=== PATIENT | female | born 1955 | race Caucasian/White ===

== ENCOUNTER → 2016-05-29 | Outpatient (REF) | payer BC | LOC: M LAB REF 12:07 | PROVIDERS: ATTEND Nurse Practitioner Adult Health | DX: K62.5 Hemorrhage of anus and rectum (principal) ==

== ENCOUNTER → 2016-11-27 | Outpatient (REF) | payer BC | LOC: M LAB REF 17:28 | PROVIDERS: ATTEND Nurse Practitioner Adult Health | DX: D50.9 Iron deficiency anemia, unspecified (principal) ==

== ENCOUNTER → 2017-06-05 | Outpatient (REF) | payer BC ==
[2017-06-05 14:35] LABS: IRON (FE) 116 UG/DL (50-170)
== END ==
LOC: M LAB REF 13:28
DX: D50.9 Iron deficiency anemia, unspecified (principal)
CPT/HCPCS: 83540

== ENCOUNTER 2018-04-05 08:08 | Emergency (ER) | payer BC ==
[2018-04-05 08:36] LABS: BASO # 0.1 10^3/uL (0.0-0.2); BASO % 0.4 % (0.0-1.0); EOS # 0.2 10^3/uL (0.0-0.50); EOS % 1.5 % (0.0-3.0); HEMATOCRIT 50.2 % (36.0-47.0); IMMATURE GRANULOCYTE % 0.4 % (0-3.0); LYMPH % 16.2 % (24.0-44.0); MEAN CORPUSCULAR HEMOGLOBIN 31.1 pg (27.0-33.0); MEAN CORPUSCULAR HGB CONC 33.9 g/dl (32.0-36.5); MEAN CORPUSCULAR VOLUME 91.8 fl (80.0-96.0); MONO # 0.8 10^3/uL (0.0-0.8); MONO % 6.5 % (0.0-5.0); NEUTROPHILS # 9.2 10^3/uL (1.8-7.7); PLATELET COUNT, AUTOMATED 251 10^3/uL (150-450); RED BLOOD COUNT 5.47 10^6/uL (4.00-5.40); RED CELL DISTRIBUTION WIDTH 13.4 % (11.5-14.5); WHITE BLOOD COUNT 12.3 10^3/uL (4.0-10.0)
[2018-04-05 08:59] LABS: ALBUMIN 3.7 GM/DL (3.2-5.2); ALBUMIN/GLOBULIN RATIO 1.19 (1.00-1.93); ALKALINE PHOSPHATASE 96 U/L (45-117); ALT/SGPT 18 U/L (12-78); ANION GAP 7 MEQ/L (8-16); AST/SGOT 14 U/L (7-37); BILIRUBIN,DIRECT 0.1 MG/DL (0.0-0.2); BILIRUBIN,TOTAL 0.5 MG/DL (0.2-1.0); BLOOD UREA NITROGEN 8 MG/DL (7-18); CARBON DIOXIDE LEVEL 29 MEQ/L (21-32); CHLORIDE LEVEL 105 MEQ/L (98-107); CREATININE FOR GFR 0.75 MG/DL (0.55-1.30); GLOMERULAR FILTRATION RATE > 60.0 (>45); GLUCOSE, FASTING 95 MG/DL (70-100); LIPASE 83 U/L (73-393); POTASSIUM SERUM 4.1 MEQ/L (3.5-5.1); SODIUM LEVEL 141 MEQ/L (136-145); TOTAL PROTEIN 6.8 GM/DL (6.4-8.2)
[2018-04-05] MEDS: MORPHINE 2 MG/ML 1ML SYRINGE (J2270) IV (09:03)
[2018-04-05] MEDS: GASTROGRAFIN SOLUTION 30ML PO ×2 (09:34→10:05)
[2018-04-05] MEDS ORDERED: ISOVUE-370 76% 100ML VIAL (Q9967) As Ordered (10:41)
== END 2018-04-05 12:31 | disposition home or self-care (01) ==
LOC: M ED 08:08
DX: K44.9 Diaphragmatic hernia without obstruction or gangrene (principal); K21.9 Gastro-esophageal reflux disease without esophagitis
CPT/HCPCS: Q9963

== ENCOUNTER 2018-07-28 23:48 | Emergency (ER) | payer BC ==
[~2018-07-28] VITALS: Ht 182.9 cm; Wt 72.7 kg
[~2018-07-28 23:48] MED LIST: ASPI81TA85 PO; ATEN25TA PO; LANS30CA PO; PARO1TAB33 PO; PERC5TAB12 PO; SIMV20TA2 PO; VITA100067 PO
[2018-07-28] MEDS ORDERED: WARF-20 (23:56)
[2018-07-29] MEDS ORDERED: NS 1,000 ML IV ONE (00:45)
[2018-07-29] MEDS ORDERED: ONDANSETRON 4MG/2ML VIAL (J2405) IV ONE (00:45)
[2018-07-29] MEDS ORDERED: MORPHINE 4 MG/ML 1ML VIAL/SYRINGE (J2270) IV PRN (00:45)
[2018-07-29 01:10] LABS: BASO # 0.1 10^3/uL (0.0-0.2); BASO % 0.3 % (0.0-1.0); EOS # 0.4 10^3/uL (0.0-0.50); EOS % 2.1 % (0.0-3.0); HEMATOCRIT 38.4 % (36.0-47.0); HEMOGLOBIN 12.7 g/dl (12.0-15.5); LYMPH % 11.4 % (24.0-44.0); MEAN CORPUSCULAR HEMOGLOBIN 29.7 pg (27.0-33.0); MEAN CORPUSCULAR HGB CONC 33.1 g/dl (32.0-36.5); MEAN CORPUSCULAR VOLUME 89.7 fl (80.0-96.0); MONO # 1.1 10^3/uL (0.0-0.8); MONO % 6.1 % (0.0-5.0); NEUTROPHILS # 14.1 10^3/uL (1.8-7.7); NEUTROPHILS % 79.6 % (36.0-66.0); PLATELET COUNT, AUTOMATED 563 10^3/uL (150-450); RED BLOOD COUNT 4.28 10^6/uL (4.00-5.40); WHITE BLOOD COUNT 17.7 10^3/uL (4.0-10.0)
[2018-07-29 01:36] LABS: ALBUMIN 2.3 GM/DL (3.2-5.2); ALT/SGPT 16 U/L (12-78); BILIRUBIN,DIRECT < 0.1 MG/DL (0.0-0.2); BILIRUBIN,TOTAL 0.2 MG/DL (0.2-1.0); BLOOD UREA NITROGEN 11 MG/DL (7-18); CALCIUM LEVEL 7.9 MG/DL (8.8-10.2); CARBON DIOXIDE LEVEL 29 MEQ/L (21-32); CHLORIDE LEVEL 103 MEQ/L (98-107); CPK CREATINE PHOSPHOKINASE 27 U/L (26-192); CREATININE FOR GFR 0.69 MG/DL (0.55-1.30); GLOMERULAR FILTRATION RATE > 60.0 (>45); GLUCOSE, FASTING 110 MG/DL (70-100); LIPASE 91 U/L (73-393); MB/CK RELATIVE INDEX 4.44 (< OR =4); POTASSIUM SERUM 2.5 MEQ/L (3.5-5.1); SODIUM LEVEL 141 MEQ/L (136-145); TOTAL PROTEIN 5.8 GM/DL (6.4-8.2); TROPONIN I < 0.02 NG/ML (< 0.10)
[2018-07-29 01:38] LABS: INR 1.91; PROTHROMBIN TIME 22.2 SECONDS (12.1-14.4)
[2018-07-29 01:39] LABS: PARTIAL THROMBOPLASTIN TIME 35.7 SECONDS (25.4-37.6)
[2018-07-29 01:48] LABS: MAGNESIUM LEVEL 1.1 MG/DL (1.8-2.4)
[2018-07-29] MEDS ORDERED: ISOVUE-370 76% 100ML VIAL (Q9967) As Ordered ONE (01:50)
[2018-07-29] MEDS ORDERED: KCL 10MEQ/100ML SWI (KRUN) 10 MEQ in APPROPRIATE DILUENT 1 EA IV ONE (02:15)
--- NOTE | 2018-07-29 04:08 | REPVR ---
EXAM: CT Abdomen and Pelvis With Contrast EXAM DATE/TIME: 07/29/2018 1:56 AM CLINICAL HISTORY: 63 years old, female; Pain; Abdominal pain; Prior surgery; Surgery date: 1-6 months; Surgery type: Hernia; Additional info: Generalized abd pain TECHNIQUE: Axial computed tomography images of the abdomen and pelvis with intravenous contrast. All CT scans at this facility use at least one of these dose optimization techniques: automated exposure control; mA and/or kV adjustment per patient size (includes targeted exams where dose is matched to clinical indication); or iterative reconstruction. Coronal and sagittal reformatted images were created and reviewed. CONTRAST: Contrast Material: 100 ml of ISO 370; Contrast Route: IV COMPARISON: CT ABD PELVIS WITH CONTRAST 04/05/2018 10:42 AM FINDINGS: LUNG BASES: Atelectasis and pulmonary parenchymal fibrotic changes noted. There is a 6.9 cm emphysematous bleb at the right lung base. VASCULAR: Cardiothoracic ratio is borderline. No abdominal aortic aneurysm, dissection, or retroperitoneal hematoma. Mild atherosclerosis. PERITONEAL : No free air. Trace amounts of free fluid. Mild edema and stranding within the greater omentum. This may be secondary to recent postsurgical change or scarring. GI: The distal esophagus is slightly distended with fluid and ingested material, up to 2.8 cm in diameter with fluid extending above the level of imaging. This could be related to poor forward peristalsis, gastroesophageal obstruction or reflux. The previously seen large hiatal hernia has been reduced. Surgical clips are noted along the gastric cardia. Consider further assessment by esophagram, to exclude any possibility of stricture or dysmotility. The stomach contains ingested material, fluid and gas. The stomach is not sufficiently distended to evaluate wall thickening, exclude fold thickening or mucosal abnormality. Small bowel loops in the central abdomen demonstrate segmental areas of dilation with air fluid levels and segmental areas of wall thickening and narrowing. Maximal distention is up to 5.4 cm. Ileal loops in the right lower quadrant are nondilated. Findings are worrisome for small bowel obstruction. Obstruction could be secondary to adhesions or inflammation/enteritis. Consideration could be given to small bowel follow-through for further assessment. Indistinct soft tissue thickening and/or edema is noted between the anterior bowel loops and the greater omentum. This could be secondary to postsurgical change, inflammation and/or fluid/edema. Scattered fecal material and gas within portions of the colon and rectum. Perianal inflammation cannot be excluded. There is diverticulosis with no evidence of acute diverticulitis. Semisolid fecal material noted within portions of the colon. No pericolonic inflammatory stranding. The appendix does not appear inflamed. HEPATOBILIARY, PANCREAS, SPLEEN: The liver is not enlarged. The gallbladder has been removed. No significant biliary dilation. Since the prior exam, the spleen has been removed; there is a slightly thickwalled appearing cystic fluid collection in the left upper quadrant measuring 3.3 cm in diameter. This extends to the postero-superior diaphragmatic surface adjacent to some surgical clips. This could represent postsurgical change and/or aseptic fluid, residual hematoma, infarcted splenule, however infected fluid cannot be excluded. An 11 mm splenule is noted in the left upper quadrant. No pancreatic inflammation. ADRENALS, KIDNEYS, BLADDER, RETROPERITONEAL: Adrenals within normal limits. No hydronephrosis. Symmetric renal enhancement. Hypodense renal lesions noted, consistent with cysts. No perivesical stranding. Slight urinary bladder wall thickening likely artifact secondary to insufficient distention. PELVIC: No dominant cystic pelvic mass seen. Retroverted uterus. Gas within the vagina may be iatrogenic. MUSCULOSKELETAL: Skin thickening, subcutaneous thickening and reticulation noted along the midline abdominal wall, inseparable from the medial aspects of the rectus abdominis muscles could be secondary to recent postsurgical change. Tiny bubbles of gas are suspected. Cellulitis and/or infection cannot be excluded. This soft tissue thickening is inseparable from the anterior small bowel loops within the peritoneal cavity. Mesh repair of the previously seen left lower quadrant anterior abdominal wall hernia is noted. No surrounding inflammation or fluid collection seen. Degenerative changes of the spine and within the pelvis. No suspicious bone lesion. Left lateral sixth and seventh slightly displaced rib fractures are noted which appear ununited although some callus formation is seen suggesting subacute nature. These are new compared to prior exam. Right lateral sixth and possibly fifth rib fractures are noted which are new compared to the prior exam but appear to be uniting with callus. Old right posterior ninth rib fracture noted. IMPRESSION: Segmental areas of small bowel dilation within the central abdomen, consistent with small bowel obstruction. Gastrointestinal findings and differential discussed above in detail. Status post splenectomy. There is a 3.3 cm thick walled fluid collection in the left upper quadrant at the splenectomy site, differential as given above. Skin thickening, tiny amount of gas noted along the anterior abdominal wall which could be secondary to postsurgical change but inflammation/infection cannot be excluded. Other incidental findings discussed above. Electronically signed by: Nirmal Hutton On 07/29/2018 04:08:19 AM
[2018-07-29] MEDS ORDERED: MAG SULF 1GM/100ML (MAG RUN) 1 GM in APPROPRIATE DILUENT 1 EA IV ONE (04:45)
[2018-07-29] MEDS ORDERED: POTASSIUM CHLORIDE 10 MEQ SR TABLET PO ONE (04:45)
[2018-07-29] MEDS ORDERED: PIPERACILLIN/TAZOBACTAM SOD 3.375 GM in D5W MINI-BAG PLUS 50 ML IV ONE (04:45)
[2018-07-29] MEDS ORDERED: MAGNESIUM OXIDE 400 MG TAB (MAG-OX) PO ONE (05:45)
[2018-07-29 06:04] VITALS: BP 113/71
--- NOTE | 2018-07-29 21:52 | ECGEPIP ---
Stationary ECG Study [facility] - ED Test Date: 2018-07-29 Pat Name: SAMMY DENT Department: Room: - Gender: F Pet Sitting: NUPUR : 1955 Requested By: REMY Hatfield Order Number: [id number] Reading MD: Derick Hammond Measurements Intervals [place] Rate: 62 P: 64 DE: 130 QRS: -11 QRSD: 104 T: 30 QT: 444 QTc: 451 Interpretive Statements SINUS RHYTHM MODERATE ST DEPRESSION Comparison tracing not on file Electronically Signed On 07-29-2018 21:52:03 EDT by Derick Hammond
== END 2018-07-29 06:11 | disposition short-term general hospital (02) ==
LOC: M ED 23:48
DX: K56.609 Unspecified intestinal obstruction, unspecified as to partial versus complete obstruction (principal); K65.1 Peritoneal abscess; E83.51 Hypocalcemia; E83.42 Hypomagnesemia; R11.2 Nausea with vomiting, unspecified; R19.7 Diarrhea, unspecified; I51.9 Heart disease, unspecified; N18.9 Chronic kidney disease, unspecified; Z85.3 Personal history of malignant neoplasm of breast; Z90.81 Acquired absence of spleen; Z87.891 Personal history of nicotine dependence; Z88.0 Allergy status to penicillin; Z88.2 Allergy status to sulfonamides; Z79.899 Other long term (current) drug therapy; Z79.01 Long term (current) use of anticoagulants
CPT/HCPCS: 74177; 80048; 80076; 82550; 82553; 83605; 83690; 83735; 84484; 85025; 85610; 85730; 87040; 93005; 93041; 96365; 96367; 96375; 99285; J2270; J2405; J2543; Q9967

== ENCOUNTER → 2018-08-12 | Outpatient (REF) | payer BC ==
[~2018-08-12] MED LIST changes: +WARF-20
[2018-08-12 17:28] LABS: HEMATOCRIT 35.7 % (36.0-47.0); HEMOGLOBIN 11.4 g/dl (12.0-15.5); MEAN CORPUSCULAR HEMOGLOBIN 29.4 pg (27.0-33.0); MEAN CORPUSCULAR HGB CONC 31.9 g/dl (32.0-36.5); PLATELET COUNT, AUTOMATED 486 10^3/uL (150-450); RED BLOOD COUNT 3.88 10^6/uL (4.00-5.40); WHITE BLOOD COUNT 10.9 10^3/uL (4.0-10.0)
[2018-08-12 17:53] LABS: ALBUMIN 2.5 GM/DL (3.2-5.2); ALT/SGPT 17 U/L (12-78); BILIRUBIN,TOTAL 0.2 MG/DL (0.2-1.0); BLOOD UREA NITROGEN 16 MG/DL (7-18); CALCIUM LEVEL 8.2 MG/DL (8.8-10.2); CARBON DIOXIDE LEVEL 28 MEQ/L (21-32); CHLORIDE LEVEL 106 MEQ/L (98-107); CREATININE FOR GFR 0.64 MG/DL (0.55-1.30); GLOMERULAR FILTRATION RATE > 60.0 (>45); GLUCOSE, FASTING 99 MG/DL (70-100); MAGNESIUM LEVEL 1.8 MG/DL (1.8-2.4); PHOSPHORUS LEVEL 3.4 MG/DL (2.5-4.9); POTASSIUM SERUM 4.4 MEQ/L (3.5-5.1); PREALBUMIN 16.6 MG/DL (20.0-40.0); SODIUM LEVEL 141 MEQ/L (136-145); TOTAL PROTEIN 5.8 GM/DL (6.4-8.2); TRIGLYCERIDES LEVEL 121 MG/DL (<150)
== END ==
LOC: M LAB REF 16:44
PROVIDERS: ATTEND Physician Assistant
DX: Z87.738 Personal history of other specified (corrected) congenital malformations of digestive system (principal)

== ENCOUNTER → 2018-08-19 | Outpatient (REF) | payer BC ==
[2018-08-19 17:26] LABS: HEMATOCRIT 39.4 % (36.0-47.0); HEMOGLOBIN 12.6 g/dl (12.0-15.5); MEAN CORPUSCULAR HEMOGLOBIN 29.4 pg (27.0-33.0); MEAN CORPUSCULAR VOLUME 92.1 fl (80.0-96.0); PLATELET COUNT, AUTOMATED 509 10^3/uL (150-450); RED BLOOD COUNT 4.28 10^6/uL (4.00-5.40); WHITE BLOOD COUNT 10.4 10^3/uL (4.0-10.0)
[2018-08-19 17:34] LABS: ALBUMIN 2.7 GM/DL (3.2-5.2); ALT/SGPT 18 U/L (12-78); BILIRUBIN,TOTAL 0.4 MG/DL (0.2-1.0); BLOOD UREA NITROGEN 24 MG/DL (7-18); CALCIUM LEVEL 8.6 MG/DL (8.8-10.2); CARBON DIOXIDE LEVEL 29 MEQ/L (21-32); CHLORIDE LEVEL 102 MEQ/L (98-107); CREATININE FOR GFR 0.68 MG/DL (0.55-1.30); GLOMERULAR FILTRATION RATE > 60.0 (>45); GLUCOSE, FASTING 83 MG/DL (70-100); PHOSPHORUS LEVEL 5.1 MG/DL (2.5-4.9); POTASSIUM SERUM 4.8 MEQ/L (3.5-5.1); PREALBUMIN 18.8 MG/DL (20.0-40.0); SODIUM LEVEL 137 MEQ/L (136-145); TOTAL PROTEIN 6.2 GM/DL (6.4-8.2)
== END ==
LOC: M LAB REF 16:24
PROVIDERS: ATTEND Surgery
DX: T81.9XXA Unspecified complication of procedure, initial encounter (principal)

== ENCOUNTER → 2018-08-26 | Outpatient (REF) | payer BC ==
[2018-08-26 13:26] LABS: HEMATOCRIT 39.5 % (36.0-47.0); HEMOGLOBIN 12.6 g/dl (12.0-15.5); MEAN CORPUSCULAR HEMOGLOBIN 29.8 pg (27.0-33.0); MEAN CORPUSCULAR HGB CONC 31.9 g/dl (32.0-36.5); MEAN CORPUSCULAR VOLUME 93.4 fl (80.0-96.0); PLATELET COUNT, AUTOMATED 486 10^3/uL (150-450); RED BLOOD COUNT 4.23 10^6/uL (4.00-5.40); WHITE BLOOD COUNT 10.3 10^3/uL (4.0-10.0)
[2018-08-26 13:37] LABS: ALBUMIN 2.7 GM/DL (3.2-5.2); ALT/SGPT 21 U/L (12-78); BILIRUBIN,TOTAL 0.3 MG/DL (0.2-1.0); BLOOD UREA NITROGEN 23 MG/DL (7-18); CALCIUM LEVEL 8.6 MG/DL (8.8-10.2); CARBON DIOXIDE LEVEL 29 MEQ/L (21-32); CHLORIDE LEVEL 105 MEQ/L (98-107); GLOMERULAR FILTRATION RATE > 60.0 (>45); GLUCOSE, FASTING 98 MG/DL (70-100); MAGNESIUM LEVEL 1.8 MG/DL (1.8-2.4); PHOSPHORUS LEVEL 4.3 MG/DL (2.5-4.9); POTASSIUM SERUM 4.5 MEQ/L (3.5-5.1); SODIUM LEVEL 139 MEQ/L (136-145); TOTAL PROTEIN 6.2 GM/DL (6.4-8.2)
== END ==
LOC: M LAB REF 12:58
PROVIDERS: ATTEND Surgery
DX: K91.89 Other postprocedural complications and disorders of digestive system (principal); Y83.8 Other surgical procedures as the cause of abnormal reaction of the patient, or of later complication, without mention of misadventure at the time of the procedure

== ENCOUNTER → 2018-09-02 | Outpatient (REF) | payer BC ==
[2018-09-02 19:17] LABS: HEMATOCRIT 40.7 % (36.0-47.0); HEMOGLOBIN 13.2 g/dl (12.0-15.5); MEAN CORPUSCULAR HGB CONC 32.4 g/dl (32.0-36.5); MEAN CORPUSCULAR VOLUME 92.5 fl (80.0-96.0); PLATELET COUNT, AUTOMATED 478 10^3/uL (150-450); WHITE BLOOD COUNT 11.8 10^3/uL (4.0-10.0)
[2018-09-02 19:40] LABS: ALBUMIN 2.8 GM/DL (3.2-5.2); ALT/SGPT 22 U/L (12-78); BILIRUBIN,TOTAL 0.3 MG/DL (0.2-1.0); BLOOD UREA NITROGEN 24 MG/DL (7-18); CALCIUM LEVEL 8.5 MG/DL (8.8-10.2); CARBON DIOXIDE LEVEL 31 MEQ/L (21-32); CHLORIDE LEVEL 102 MEQ/L (98-107); GLOMERULAR FILTRATION RATE > 60.0 (>45); GLUCOSE, FASTING 69 MG/DL (70-100); MAGNESIUM LEVEL 1.6 MG/DL (1.8-2.4); PHOSPHORUS LEVEL 3.9 MG/DL (2.5-4.9); POTASSIUM SERUM 4.5 MEQ/L (3.5-5.1); SODIUM LEVEL 137 MEQ/L (136-145); TOTAL PROTEIN 6.4 GM/DL (6.4-8.2); TRIGLYCERIDES LEVEL 134 MG/DL (<150)
== END ==
LOC: M LAB REF 18:48
PROVIDERS: ATTEND Surgery
DX: K91.89 Other postprocedural complications and disorders of digestive system (principal); Y83.8 Other surgical procedures as the cause of abnormal reaction of the patient, or of later complication, without mention of misadventure at the time of the procedure

== ENCOUNTER 2018-09-07 10:40 | Emergency (ER) | payer BC ==
[~2018-09-07] VITALS: Ht 182.9 cm; Wt 77.3 kg
[2018-09-07] MEDS ORDERED: ASPI81TA85 PO (11:04)
[2018-09-07] MEDS ORDERED: OXYC-141 (11:04)
[2018-09-07 11:30] LABS: BASO # 0.1 10^3/uL (0.0-0.2); BASO % 0.4 % (0.0-1.0); EOS # 0.2 10^3/uL (0.0-0.50); EOS % 1.1 % (0.0-3.0); HEMATOCRIT 41.6 % (36.0-47.0); HEMOGLOBIN 13.8 g/dl (12.0-15.5); MEAN CORPUSCULAR HEMOGLOBIN 30.2 pg (27.0-33.0); MEAN CORPUSCULAR HGB CONC 33.2 g/dl (32.0-36.5); MONO # 1.2 10^3/uL (0.0-0.8); MONO % 7.9 % (0.0-5.0); NEUTROPHILS # 11.7 10^3/uL (1.8-7.7); PLATELET COUNT, AUTOMATED 468 10^3/uL (150-450); RED BLOOD COUNT 4.57 10^6/uL (4.00-5.40); WHITE BLOOD COUNT 15.2 10^3/uL (4.0-10.0)
[2018-09-07] MEDS ORDERED: ONDANSETRON 4MG/2ML VIAL (J2405) IV ONE (11:30)
[2018-09-07] MEDS ORDERED: MORPHINE 4 MG/ML 1ML VIAL/SYRINGE (J2270) IV PRN (11:30)
[2018-09-07] MEDS ORDERED: NS 1,000 ML IV SCH (11:30)
[2018-09-07] MEDS: GASTROGRAFIN SOLUTION 30ML PO SCH ×2 (12:01→12:33)
[2018-09-07 12:14] LABS: ALBUMIN 2.8 GM/DL (3.2-5.2); ALT/SGPT 28 U/L (12-78); BILIRUBIN,DIRECT < 0.1 MG/DL (0.0-0.2); BILIRUBIN,TOTAL 0.4 MG/DL (0.2-1.0); BLOOD UREA NITROGEN 29 MG/DL (7-18); CALCIUM LEVEL 8.4 MG/DL (8.8-10.2); CARBON DIOXIDE LEVEL 25 MEQ/L (21-32); CHLORIDE LEVEL 104 MEQ/L (98-107); CREATININE FOR GFR 0.77 MG/DL (0.55-1.30); GLOMERULAR FILTRATION RATE > 60.0 (>45); GLUCOSE, FASTING 101 MG/DL (70-100); LIPASE 38 U/L (73-393); POTASSIUM SERUM 6.7 MEQ/L (3.5-5.1); SODIUM LEVEL 136 MEQ/L (136-145); TOTAL PROTEIN 6.8 GM/DL (6.4-8.2)
[2018-09-07 12:20] LABS: INR 0.97
[2018-09-07 12:22] LABS: PARTIAL THROMBOPLASTIN TIME 43.1 SECONDS (25.4-37.6)
[2018-09-07] MEDS ORDERED: ISOVUE-370 76% 100ML VIAL (Q9967) As Ordered ONE (13:53)
[2018-09-07] MEDS ORDERED: NS 1,000 ML IV ONE (16:00)
[2018-09-07] MEDS ORDERED: SODIUM CHLORIDE 0.9% INJ 10 ML SYR IV PRN ×2 (18:30→18:45)
[2018-09-07 19:15] VITALS: BP 120/64
--- NOTE | 2018-09-08 09:14 | REP ---
Acute abdominal series four views including PA chest, upright abdomen and two supine views of the abdomen: PA chest: Comparison is 03/16/2014. The lung flores are clear. Cardiac size is normal. There are nodular densities in the right infrahilar zone as an interval change. The previous huge hiatal hernia is no longer present. There are surgical clips in the abdominal left upper quadrant as an interval change. There is a right IJ central venous catheter with the tip in the superior vena cava as an interval change. The tari, mediastinum, skeletal structures otherwise are unremarkable. There is no free subdiaphragmatic air. Impression: Surgical clips and nodular densities in the right infrahilar zone as an interval change. The previous huge hiatal hernia is no longer present. No free subdiaphragmatic air. Abdomen, supine upright views: Comparison is the supine abdomen dated 12/14/2011. There are multiple air-fluid levels in dilated bowel loops in the upper abdomen, compatible with bowel obstruction. There are multiple surgical clips in the left upper quadrant. There is a surgical staple line in the right lower quadrant. There is a surgical clip in the pelvis on the left. Impression: Findings are compatible with bowel obstruction. Electronically Signed by Wayne Doherty MD 09/07/2018 11:59 A
--- NOTE | 2018-09-08 09:17 | REP ---
CT of the abdomen and pelvis without IV contrast, with bowel contrast: Comparison is 07/29/2018. The visualized lung flores are unremarkable. The unenhanced hepatic parenchyma is unremarkable. There are surgical clips in the gallbladder fossa. The pancreas is unremarkable. The the patient has a splenectomy. There is a 11 mm splenule. Just superior to this splenule there is a focal hypodense 3.3 cm soft tissue density with adjacent surgical clips. This may represent an organized hematoma. It is unchanged. There are surgical clips in the abdominal left upper quadrant along the medial aspect of the left hemidiaphragm. These are unchanged. The adrenals and kidneys are unremarkable except for A 3.8 cm simple cyst at the lower pole of the left kidney. This is unchanged. Abdominal aorta is unremarkable. There is marked os distension of the proximal and mid small bowel with multiple air-fluid levels. The distal small bowel is nondistended. This is similar to the prior study and may represent obstruction/partial obstruction of the small bowel. There are surgical demian in the mid small bowel as previously. There is no ascites. There is no pneumoperitoneum. Pelvis: The bladder, uterus and adnexa are unremarkable except for surgical clips in the adnexa bilaterally. The pelvic bowel loops are unremarkable. Impression: Dilated proximal and mid small bowel with multiple air-fluid levels compatible with obstruction/partial obstruction. The distal small bowel is nondistended. The pattern is similar to the prior study. There is no ascites or pneumoperitoneum. Splenectomy. Surgical clips adjacent to the left hemidiaphragm medially. Surgical demian in the mid small bowel. No ascites or pneumoperitoneum. Electronically Signed by Wayne Doherty MD 09/07/2018 03:21 P
== END 2018-09-07 19:19 | disposition short-term general hospital (02) ==
LOC: M ED 10:40
DX: K56.699 Other intestinal obstruction unspecified as to partial versus complete obstruction (principal); I25.10 Atherosclerotic heart disease of native coronary artery without angina pectoris; Z90.81 Acquired absence of spleen; Z88.0 Allergy status to penicillin; Z88.2 Allergy status to sulfonamides; Z85.3 Personal history of malignant neoplasm of breast; Z79.82 Long term (current) use of aspirin; Z79.899 Other long term (current) drug therapy
CPT/HCPCS: 36415; 74021; 74176; 80048; 80076; 83605; 83690; 83735; 84132; 85025; 85610; 85730; 93041; 94760; 96361; 96374; 96375; 99285; J2270; J2405; Q9963

== ENCOUNTER → 2018-09-23 | Outpatient (REF) | payer BC ==
[~2018-09-23] MED LIST changes: +OXYC-141
[2018-09-23 19:37] LABS: HEMATOCRIT 29.9 % (36.0-47.0); HEMOGLOBIN 9.6 g/dl (12.0-15.5); MEAN CORPUSCULAR HEMOGLOBIN 30.4 pg (27.0-33.0); MEAN CORPUSCULAR HGB CONC 32.1 g/dl (32.0-36.5); MEAN CORPUSCULAR VOLUME 94.6 fl (80.0-96.0); PLATELET COUNT, AUTOMATED 745 10^3/uL (150-450); RED BLOOD COUNT 3.16 10^6/uL (4.00-5.40); WHITE BLOOD COUNT 12.6 10^3/uL (4.0-10.0)
[2018-09-23 20:03] LABS: BLOOD UREA NITROGEN 21 MG/DL (7-18); CARBON DIOXIDE LEVEL 29 MEQ/L (21-32); CHLORIDE LEVEL 108 MEQ/L (98-107); GLOMERULAR FILTRATION RATE > 60.0 (>45); GLUCOSE, FASTING 84 MG/DL (70-100); SODIUM LEVEL 142 MEQ/L (136-145)
[2018-09-23 20:04] LABS: ALBUMIN 2.3 GM/DL (3.2-5.2); ALT/SGPT 25 U/L (12-78); BILIRUBIN,TOTAL 0.2 MG/DL (0.2-1.0); CALCIUM LEVEL 7.7 MG/DL (8.8-10.2); MAGNESIUM LEVEL 1.8 MG/DL (1.8-2.4); PHOSPHORUS LEVEL 2.9 MG/DL (2.5-4.9); PREALBUMIN 18.2 MG/DL (20.0-40.0); TOTAL PROTEIN 5.8 GM/DL (6.4-8.2)
== END ==
LOC: M LAB REF 18:44
PROVIDERS: ATTEND Surgery
DX: Z79.899 Other long term (current) drug therapy (principal)

== ENCOUNTER → 2018-09-30 | Outpatient (REF) | payer BC ==
[2018-09-30 17:13] LABS: HEMATOCRIT 32.7 % (36.0-47.0); HEMOGLOBIN 10.5 g/dl (12.0-15.5); MEAN CORPUSCULAR HEMOGLOBIN 30.7 pg (27.0-33.0); MEAN CORPUSCULAR HGB CONC 32.1 g/dl (32.0-36.5); MEAN CORPUSCULAR VOLUME 95.6 fl (80.0-96.0); PLATELET COUNT, AUTOMATED 626 10^3/uL (150-450); RED BLOOD COUNT 3.42 10^6/uL (4.00-5.40); WHITE BLOOD COUNT 10.8 10^3/uL (4.0-10.0)
[2018-09-30 17:37] LABS: ALBUMIN 2.6 GM/DL (3.2-5.2); ALT/SGPT 26 U/L (12-78); BILIRUBIN,TOTAL 0.2 MG/DL (0.2-1.0); BLOOD UREA NITROGEN 19 MG/DL (7-18); CALCIUM LEVEL 8.2 MG/DL (8.8-10.2); CARBON DIOXIDE LEVEL 29 MEQ/L (21-32); CHLORIDE LEVEL 110 MEQ/L (98-107); CREATININE FOR GFR 0.58 MG/DL (0.55-1.30); GLOMERULAR FILTRATION RATE > 60.0 (>45); GLUCOSE, FASTING 58 MG/DL (70-100); MAGNESIUM LEVEL 1.9 MG/DL (1.8-2.4); PHOSPHORUS LEVEL 3.2 MG/DL (2.5-4.9); POTASSIUM SERUM 3.5 MEQ/L (3.5-5.1); PREALBUMIN 21.6 MG/DL (20.0-40.0); SODIUM LEVEL 146 MEQ/L (136-145); TOTAL PROTEIN 6.1 GM/DL (6.4-8.2); TRIGLYCERIDES LEVEL 115 MG/DL (<150)
== END ==
LOC: M LAB REF 16:29
PROVIDERS: ATTEND Surgery
DX: K91.89 Other postprocedural complications and disorders of digestive system (principal)

== ENCOUNTER → 2018-10-07 | Outpatient (REF) | payer BC ==
[2018-10-07 19:28] LABS: HEMATOCRIT 34.5 % (36.0-47.0); HEMOGLOBIN 11.1 g/dl (12.0-15.5); MEAN CORPUSCULAR HEMOGLOBIN 30.6 pg (27.0-33.0); MEAN CORPUSCULAR HGB CONC 32.2 g/dl (32.0-36.5); PLATELET COUNT, AUTOMATED 383 10^3/uL (150-450); RED BLOOD COUNT 3.63 10^6/uL (4.00-5.40); WHITE BLOOD COUNT 9.4 10^3/uL (4.0-10.0)
[2018-10-07 20:38] LABS: ALBUMIN 2.8 GM/DL (3.2-5.2); ALT/SGPT 26 U/L (12-78); BILIRUBIN,TOTAL 0.3 MG/DL (0.2-1.0); BLOOD UREA NITROGEN 12 MG/DL (7-18); CALCIUM LEVEL 8.2 MG/DL (8.8-10.2); CARBON DIOXIDE LEVEL 28 MEQ/L (21-32); CHLORIDE LEVEL 107 MEQ/L (98-107); CREATININE FOR GFR 0.68 MG/DL (0.55-1.30); GLOMERULAR FILTRATION RATE > 60.0 (>45); GLUCOSE, FASTING 91 MG/DL (70-100); MAGNESIUM LEVEL 1.6 MG/DL (1.8-2.4); PHOSPHORUS LEVEL 3.9 MG/DL (2.5-4.9); POTASSIUM SERUM 3.1 MEQ/L (3.5-5.1); PREALBUMIN 17.1 MG/DL (20.0-40.0); SODIUM LEVEL 143 MEQ/L (136-145); TOTAL PROTEIN 6.4 GM/DL (6.4-8.2); TRIGLYCERIDES LEVEL 119 MG/DL (<150)
== END ==
LOC: M LAB REF 16:40
PROVIDERS: ATTEND Surgery
DX: T81.9XXA Unspecified complication of procedure, initial encounter (principal)

== ENCOUNTER 2020-06-26 10:01 | Inpatient (IN) | payer BC, MEDICARE ==
[~2020-06-26] VITALS: Ht 182.9 cm; Wt 96.1 kg
[~2020-06-26 10:01] MED LIST changes: -ASPI81TA85 PO; +ASPI81TA86 PO; -SIMV20TA2 PO; +SIMV20TA22 PO
[2020-06-26] MEDS ORDERED: NORCO, ANEXSIA 5/325MG TABLET (HYDROcodone/ACETAMINOPHEN) PO ONE (10:30)
[2020-06-26 10:48] LABS: BASO # 0.1 10^3/uL (0.0-0.2); BASO % 0.4 % (0.0-1.0); EOS # 0.1 10^3/uL (0.0-0.5); EOS % 0.5 % (0.0-3.0); HEMATOCRIT 42.1 % (36.0-47.0); HEMOGLOBIN 13.7 g/dl (12.0-15.5); LYMPH # 2.2 10^3/uL (1.5-5.0); LYMPH % 16.4 % (24.0-44.0); MEAN CORPUSCULAR HEMOGLOBIN 29.5 pg (27.0-33.0); MEAN CORPUSCULAR HGB CONC 32.5 g/dl (32.0-36.5); MEAN CORPUSCULAR VOLUME 90.5 fl (80.0-96.0); MONO % 14.9 % (0.0-5.0); NEUTROPHILS % 67.3 % (36.0-66.0); PLATELET COUNT, AUTOMATED 299 10^3/uL (150-450); RED BLOOD COUNT 4.65 10^6/uL (4.00-5.40)
[2020-06-26 10:49] LABS: WHITE BLOOD COUNT 13.3 10^3/uL (4.0-10.0)
[2020-06-26 11:08] LABS: BLOOD UREA NITROGEN 11 MG/DL (7-18); CALCIUM LEVEL 8.6 MG/DL (8.8-10.2); CARBON DIOXIDE LEVEL 29 MEQ/L (21-32); CHLORIDE LEVEL 103 MEQ/L (98-107); CREATININE FOR GFR 0.78 MG/DL (0.55-1.30); GLOMERULAR FILTRATION RATE > 60.0 (>45); GLUCOSE, FASTING 105 MG/DL (70-100); POTASSIUM SERUM 3.9 MEQ/L (3.5-5.1); SODIUM LEVEL 137 MEQ/L (136-145); URIC ACID 4.1 MG/DL (2.6-6.0)
[2020-06-26 11:13] LABS: ERYTHROCYTE SEDIMENTATION RATE 18 mm/hr (0-30)
--- NOTE | 2020-06-26 11:22 | REP ---
INDICATION: r/o DVT LLE COMPARISON: None. TECHNIQUE: Real time compression and duplex Doppler interrogation of the left lower extremity deep venous system is performed. FINDINGS: The left common femoral, superficial femoral and popliteal veins are fully compressible with transducer pressure and demonstrate normal spontaneous and phasic flow, without evidence of deep venous thrombosis. A Leach's cyst is noted measuring 6.7 x 2.1 x 2.2 cm. IMPRESSION: No evidence of deep venous thrombosis of the left lower extremity femoral popliteal venous system. <Electronically signed by Wayne Maher > 06/26/20 [id number]
--- NOTE | 2020-06-26 11:25 | REP ---
INDICATION: L knee pain/swelling COMPARISON: None. TECHNIQUE: Four views left knee. FINDINGS: No fracture or dislocation. There is mild medial joint space narrowing and subchondral sclerosis. There is mild diffuse spurring, with a more moderate degree of spurring of the superior pole of the patella. There is mild diffuse chondrocalcinosis. There is a large joint effusion. IMPRESSION: No acute fracture. Arthritic changes. Large joint effusion. <Electronically signed by Wayne Maher > 06/26/20 [id number]
[2020-06-26] MEDS ORDERED: LIDOCAINE 2% W/EPINEPHRINE 20ML VIAL **PRES FREE INJ ONE (11:45)
[2020-06-26 13:19] LABS: SOURCE, BODY FLUID LFT KNEE; SYNOVIAL FLUID COLOR YELLOW (YELLOW)
[2020-06-26 13:58] LABS: SOURCE, BODY FLUID GLUCOSE LFT KNEE; SOURCE, BODY FLUID URIC ACID LFT KNEE
--- NOTE | 2020-06-26 14:26 | HPEPDOC ---
[facility] Medical History & Physical Date of Admission Jun 26, 2020 Date of Service: Jun 26, 2020 Primary Care Physician: Eliza Huang Attending Physician: JUSTIN OLMEDO MD History and Physical CHIEF COMPLAINT: R-knee pain HISTORY OF PRESENT ILLNESS: Patient is a 65 y/o female who presented to [facility] ED with a 3 day history of worsening left knee pain and swelling. She notes that 3 nights ago, she woke up in the middle of the night with left knee pain and noticed that it was swollen. The last 3 days it has progressively worsened and she is now unable to bear weight on it. She admits to a history of osteoarthritis of the knee with steroid injections in the past, but the last was many many years ago with Dr. Miller. She denies any trauma, history of arthrocentesis, and cannot find any reason that this would've happened. She did admit to me that she lives near the [facility] and goes outside often and could've been exposed to a tick but she is not sure. She is still intermittently sexually active as well. In the emergency department, the patient had a large left knee joint effusion that was warm to the touch with limited range of motion and the patient was unable to bear weight on it. Otherwise she was neurovascularly intact but did have an elevated inflammatory markers, elevated white blood cell count. There is no evidence of a DVT on ultrasound and the x-ray just demonstrated an effusion with arthritic changes. A joint effusion was performed that demonstrated a white blood cell count of 76,000 with PMN predominance and 94% and high levels of uric acid. Orthopedic surgery was contacted and asked the hospitalist to act as primary for the admission with plans for him to do the washout later tonight and to hold off on antibiotic therapy for the time being. PAST MEDICAL HISTORY: #. Hx of CPR in OR due to intraoperative bleeding (2017 [facility]) #. Hx of SVT (last episode 10 years ago) #. Hx of RUE DVT (unknown whether provoked vs unprovoked not on AC) #. Hx of breast cancer s/p L-lumpectomy w/ chemo/radiation (2011) #. HLD #. IBS #. Chronic back pain #. Depression #. GERD #. Vitamin D deficiency HOSPITALIZATIONS: Was hospitalized at [facility] 2 years ago following intraoperative complications from an abdominal hernia repair. She apparently had internal bl eeding in the recovery unit and was taken back to the OR where she required a splenectomy and partial colectomy with her heart stopping and requiring CPR twice apparently. She again required a second surgery after this without complication. PAST SURGICAL HISTORY: Cholecystectomy Partial colectomy Abdominal hernia repair Splenectomy (up-to-date on vaccinations) Appendectomy SOCIAL HISTORY: Quit smoking 2 years ago, [id number] history. Denies alcohol use. Denies marijuana, heroin, cocaine, PCP, or other illicit drug use. Lives at home with , 2 cats and 1 dog. No history of recent travel. FAMILY HISTORY: No relevant family history Family history of Alzheimer's ALLERGIES: Please see below. REVIEW OF SYSTEMS: Constitutional: Denies fevers, night sweats, or recent unexpected weight change. Admits to chills (rigors). HEENT: Denies headaches, head trauma, no visual changes or eye pain, denies nosebleeds or difficulty swallowing. Cardiovascular: Denies chest pain, palpitations, or orthopnea. Respiratory: Denies cough, wheezing, or shortness of breath GI: Denies nausea, vomiting, abdominal pain, diarrhea, or constipation : Admits to polyuria for the last 3 days Musculoskeletal: As above in the HPI Neuro/psych: Denies muscle weakness or sensory loss Skin: Denies skin rashes HOME MEDICATIONS: Please see below. PHYSICAL EXAMINATION: VITAL SIGNS: See below GENERAL APPEARANCE: Well-appearing female who appears stated age sitting comfortably in bed in no acute distress beginning complete sentences HEENT: NC, AT, EOMI, no scleral icterus, moist mucous membranes, no pharyngeal erythema. Mallampati score of 2 CARDIOVASCULAR: RRR, soft, 2/6 systolic murmur best heard at RUSB, normal S1-S2. No gallops, rubs. LUNGS: CTAB with full breath sounds, no wheezes, crackles, or rhonchi. ABDOMEN: Soft, nontender, nondistended, bowel sounds present. Multiple surgical site scars over abdomen. No hepatosplenomegaly. No masses or ecchymosis. No CVA tenderness. EXTREMITIES: No swelling or edema NEUROLOGICAL: No focal or sensory deficits. CN II-XII grossly intact. PSYCHIATRIC: Normal mood and affect LABORATORY DATA: See below. IMAGIN06/26/20 left knee x-ray: No acute fracture. Arthritic changes. Large joint effusion. 06/26/20 left lower extremity ultrasound: No evidence of deep venous thrombosis of the left lower extremity femoral popliteal venous system. MICROBIOLOGY: Please see below. Assessment: Patient is a 65-year-old female who presented with a 3 day history of progressively worsening left knee pain and swelling and found to have fluid findings suspicious for septic arthritis. Orthopedic surgery was consulted with plans to take the patient for surgical washout on 06/26. Plan: #. Septic arthritis of the left knee -Dr. Chang w/ orthopedic surgery consulted, plans to take patient to the OR tonight and asked that we hold off on antibiotic administration. MRSA PCR ordered. -leukocytosis, elevated CRP, fluid count showing 76k WBCs w/ PMN predominance and high uric acid levels -G/C testing, lyme disease screen, BC2 pending, fluid culture pending, gram stain preliminary showing many WBCs, moderate yeast like organism #. Pre-operative evaluation -Able to complete 4 mets prior to event, no hx of adverse reactions to anesthesi a, RCRI score of 1, low risk for perioperative cardiac event for this emergent procedure. -Patient is optimized at this time. #. Uric acid crystals -Will also treat with steroids x5 days and colchicine to cover for possible mixed gouty arthiritis #. Polyuria Ordering UA #. Hx of SVT -Continue atenolol in the perioperative period #. Systolic murmur -Obtaining EKG, can get echo as outpatient #. Depression Continue paroxetine #. GERD -Continue protonix DVT prophylaxis: Teds/seqs GI prophylaxis: Pantoprazole CODE STATUS: Patient wishes to remain full code with trial of intubation Disposition: Agent to be admitted to the [facility] floor and go to the OR tonight, anticipate discharge in 2-3 days. Vital Signs Vital Signs Date Time Temp Pulse Resp B/P (MAP) Pulse Ox O2 Delivery O2 Flow Rate FiO2 06/26/20 10:41 06/26/20 10:41 16 06/26/20 10:02 98.9 70 97 Room Air Laboratory Data Labs 24H Laboratory Tests 2 06/26/20 10:37: Immature Granulocyte % (Auto) 0.5, Neutrophils (%) (Auto) 67.3H, Lymphocytes (%) (Auto) 16.4L, Monocytes (%) (Auto) 14.9H, Eosinophils (%) (Auto) 0.5, Basophils (%) (Auto) 0.4, Neutrophils # (Auto) 9.0H, Lymphocytes # (Auto) 2.2, Monocytes # (Auto) 2.0H, Eosinophils # (Auto) 0.1, Basophils # (Auto) 0.1, Nucleated Red Blood Cells % (auto) 0.0, Erythrocyte Sedimentation Rate 18, Anion Gap 5L, Glomerular Filtration Rate > 60.0, Uric Acid 4.1, Calcium Level 8.6L, C-Reactive Protein, Quantitative 9.50H 06/26/20 12:29: Body Fluid WBC (Auto) 60454Y, Body Fluid RBC (Auto) 8, Body Fluid Mononuclear Cells % Auto 5.3H, Fluid Polymorphonuclear Cell % Auto 94.7H, Body Fluid Glucose Source LFT KNEE, Body Fluid Glucose < 1, Body Fluid Uric Acid 5.0, Body Fluid Uric Acid Source LFT KNEE, Synovial Fluid Source LFT KNEE, Synovial Fluid Color YELLOW, Synovial Fluid Appearance CLOUDY 06/26/20 13:59: CBC/BMP Laboratory Tests 06/26/20 10:37 Microbiology Microbiology 06/26/20 Gram Stain - Preliminary, Resulted 06/26/20 Body Fluid Culture, Resulted Pending Home Medications Scheduled Aspirin (Aspirin EC) 81 Mg Tablet.dr, 81 MG PO DAILY Atenolol (Atenolol) 25 Mg Tab, 50 MG PO DAILY Colchicine (Colchicine) 0.6 Mg Tablet, 0.6 MG PO DAILY for gout pain Ergocalciferol (Vitamin D2) (Vitamin D2) 50,000 Units Cap, 50,000 UNITS PO 1XWK THURSDAYS Lansoprazole (Lansoprazole) 30 Mg Cap, 30 MG PO DAILY Paroxetine HCl (Paroxetine HCl) 20 Mg Tab, 20 MG PO DAILY Prednisone (Prednisone) 10 Mg Tablet, 10 MG PO TAPER 3 tabs daily x 1 day then 2 tabs daily x 3 days, then 1 tab daily x 3 days and stop Simvastatin (Simvastatin) 20 Mg Tab, 20 MG PO DAILY Allergies Coded Allergies: Penicillins (Verified Allergy, Intermediate, 09/07/18) Sulfa (Sulfonamide Antibiotics) (Verified Allergy, Intermediate, 09/07/18) GME ATTESTATION GME ATTESTATION My faculty preceptor for this patient encounter was physically present during the encounter and was fully available. All aspects of the patient interview, examination, medical decision making process, and medical care plan development were reviewed and approved by the faculty preceptor. The faculty preceptor is aware and concurs with the plan as stated in the body of this note and will attest to such by his/her cosignature. ATTENDING NOTE I performed a history and physical examination of the patient and discussed the management with the resident. I have reviewed the resident's note ad agree with the documented findings and plan of care with the following addendum; Synovial fluid shows both uric acid and calcium pyrophosphate crystals as seen by Dr Chang. So she definitely has acute gout and Psudogout of the left knee. Whether she has an associated septic arthritis or not is unsure at this time so she is being taken to OR for a wash out of the knee . Aerobic, anareobic and fungal cultures sent from OR. Will start on Vancomycin after OR. For acute Gout and Pseudogout will treat with colchicine and prednisone. ADAL MEDLEY DO Jun 26, 2020 14:26 JUSTIN OLMEDO MD Jun 26, 2020 21:32
[2020-06-26] MEDS ORDERED: ACETAMINOPHEN TAB 650MG DOSE (2X325MG) PO PRN (14:30)
[2020-06-26 14:38] LABS: SOURCE, BODY FLUID CRYSTALS LFT KNEE
[2020-06-26 14:50] LABS: INR 1.07; PROTHROMBIN TIME 14.1 SECONDS (12.5-14.3)
[2020-06-26 14:51] LABS: PARTIAL THROMBOPLASTIN TIME 35.2 SECONDS (24.2-38.5)
[2020-06-26 14:54] LABS: RSV AMPLIFICATION NEGATIVE (NEGATIVE)
[2020-06-26] MEDS ORDERED: VITA50005 PO (14:56)
[2020-06-26] MEDS ORDERED: ASPI81TA26 PO (14:56)
[2020-06-26] MEDS ORDERED: COLCHICINE 0.6 MG TABLET PO ONE (16:00)
[2020-06-26 16:15] VITALS: BP 141/70
[2020-06-26 16:24] LABS: CRYSTALS, BODY FLUID OTHER (NONE SEEN)
[2020-06-26] MEDS ORDERED: propofoL 200 MG/20 ML VIAL As Ordered ONE (18:55)
[2020-06-26] MEDS ORDERED: fentaNYL 100 MCG/2 ML INJECTION (J3010) As Ordered ONE ×2 (18:55→21:01)
[2020-06-26] MEDS ORDERED: ONDANSETRON 4MG/2ML VIAL As Ordered ONE (18:55)
[2020-06-26] MEDS ORDERED: dexameTHASONE 4 MG/ML 1ML VIAL (J1100 PER 1MG) As Ordered ONE (18:55)
[2020-06-26] MEDS ORDERED: MIDAZOLAM INJ 2MG/2ML VIAL (J2250 PER 1MG) As Ordered ONE (18:55)
[2020-06-26] MEDS ORDERED: LIDOCAINE 2% 100MG/5ML SDV (FOR ANES.) As Ordered ONE (18:55)
[2020-06-26 19:20] LABS: APPEARANCE, URINE CLOUDY (CLEAR); BACTERIA, URINE AUTO 1+ (NEGATIVE); BILIRUBIN, URINE AUTO NEGATIVE (NEGATIVE); BLOOD, URINE BLOOD 3+ (NEGATIVE); COLOR, URINE AMBER (YELLOW); GLUCOSE, URINE (UA) AUTO NEGATIVE (NEGATIVE); KETONE, URINE AUTO TRACE mg/dL (NEGATIVE); LEUKOCYTE ESTERASE, URINE AUTO NEGATIVE (NEGATIVE); MUCUS, URINE SMALL (NEGATIVE); NITRITE, URINE AUTO NEGATIVE (NEGATIVE); PROTEIN, URINE AUTO NEGATIVE (NEGATIVE); RBC, URINE AUTO 58 /HPF (0-3); SPECIFIC GRAVITY URINE AUTO 1.017 (1.002-1.035); SQUAMOUS EPITHELIAL CELL UR AU 2 /HPF (0-6); WBC, URINE AUTO 9 /HPF (0-3)
[2020-06-26] MEDS ORDERED: ROCURONIUM BROMIDE 50 MG/5 ML VIAL As Ordered ONE (19:22)
[2020-06-26] MEDS ORDERED: BUPIVACAINE HCL 0.25% 30ML VIAL As Ordered ONE (19:42)
[2020-06-26] MEDS ORDERED: LIDOCAINE 1% SDV 30ML VIAL As Ordered ONE (19:42)
[2020-06-26] MEDS ORDERED: SUGAMMADEX SODIUM 500 MG/5 ML VIAL (BRIDION) As Ordered ONE (20:15)
[2020-06-26] MEDS ORDERED: oxyCODONE 5MG TAB As Ordered ONE (21:01)
[2020-06-26 21:02] LABS: CHLAMYDIA DNA AMPLIFICATION NEGATIVE (NEGATIVE); GC DNA AMPLIFICATION NEGATIVE (NEGATIVE)
[2020-06-26] MEDS: fentaNYL 100 MCG/2 ML INJECTION (J3010) IV PRN ×3 (21:10→21:20)
[2020-06-26] MEDS ORDERED: METOCLOPRAMIDE INJ 10MG/2ML VIAL (J2765 PER 1) IV PRN (21:30)
[2020-06-26] MEDS ORDERED: VANCOMYCIN HCL 1,000 MG, VIAL MATE ADAPTER 1 EACH in D5W 250 ML IV SCH (21:30)
[2020-06-26] MEDS ORDERED: ONDANSETRON 4MG/2ML VIAL IV PRN (21:30)
[2020-06-26] MEDS ORDERED: oxyCODONE 5MG TAB PO ONE (21:30)
[2020-06-26] MEDS ORDERED: PERCOCET 5MG/325MG TAB PO PRN (21:30)
[2020-06-26] MEDS ORDERED: LR 1,000 ML IV SCH (21:30)
[2020-06-26] MEDS ORDERED: MORPHINE 2 MG/ML 1ML VIAL (J2270) IV PRN (21:30)
[2020-06-26 21:40] VITALS: BP 142/70
--- NOTE | 2020-06-26 21:55 | RO ---
OPERATIVE NOTE DATE OF OPERATION: 06/26/2020 TIME: 7 p.m. PREOPERATIVE DIAGNOSIS: 1. Left septic knee. 2. Left knee pseudogout. POSTOPERATIVE DIAGNOSIS: 1. Left septic knee. 2. Left knee pseudogout. PROCEDURE: Left knee irrigation and debridement. SURGEON: Abrahan Chang MD AIRPORT RAMP AGENT: None. SUPERVISING ATTENDING: Abrahan Chang MD FINDINGS: About 75 mL of purulent synovial fluid. INDICATIONS: This was a 65-year-old female with a complicated medical history to include SVTs, breast cancer, hyperlipidemia, GERD, presented with a three-day history of left knee pain. The patient's laboratory values included white blood cell count of 13,000, ESR of 18, CRP of 9.5. Her cellule analysis included white blood cells of 76,880, PMNs 94.7% with crystals which were weakly positively birefringent rhomboid-shaped crystals indicative of pseudogout. She was indicated for left knee irrigation and debridement for her septic knee. ANESTHESIA: GETA. TOURNIQUET TIME: 41 minutes. ESTIMATED BLOOD LOSS: 30 mL. IV FLUIDS: Please see anesthesia report. IV ANTIBIOTICS: None. CULTURES: Aerobic, anaerobic, AFB and fungal x2 each. SPECIMENS: Left knee bursal tissue prepared in formalin. IMPLANTS: None. DESCRIPTION OF PROCEDURE: The patient was met in the preoperative holding area where the patient's operative extremity was signed, the patient's consent was confirmed to be correct, and the patient's identity was confirmed to be correct. The patient was then transported to the operating theater where she was placed on a surgical flat-top surgical bed in the supine position. Safety straps secured the patient to the bed. All bony prominences were well padded. The contralateral lower extremity SCD was placed. A timeout was called which confirmed the correct patient, correct operative extremity and correct consent. All staff was in agreement. The patient was then draped in the usual sterile fashion. We began the procedure by marking out bony landmarks including patella, the tibial tubercle. I then marked a skin incision overlying the patella which centered over the patella in a longitudinal direction. It was approximately 3-1/2 inches in length. A sharp blade incised the skin. We raised the skin flaps, identified the insertion of the rectus femoris musculature under the superior aspect of the patella. I marked out a small medial parapatellar line using electrocautery. I used an inside knife to sharply incise the capsule just medial to the patella as I would for a very small medial parapatellar approach approximately one inch in length. At this point in time, I was able to access the synovium within the patient's left knee. Once opening the capsule, the patient expressed approximately 75 mL of purulent synovial fluid. We then collected our cultures, two swabs of anaerobic, aerobic, AFB and fungal. These were sent to the lab and then rongeured some of the intra-articular synovium which was sent to the lab. I performed a synovectomy within the knee and then we copiously irrigated the knee using five liters of normal saline. I ranged the knee through a full range of motion during the irrigation and debridement to ensure that the copious irrigation was thoroughly within the knee. After we completed the copious irrigation, I then placed a 15 CHARLY drain into the joint. This was pushed through the anterolateral aspect of the patient's left thigh. I then loosely approximated the capsule using 2-0 PDS, closed the dermal layer using 2-0 PDS and loosely approximated fascia and closed the epidermis using a 3-0 nylon in a running horizontal mattress fashion. At this point in time, we then covered the wound with Adaptic followed by 4x4 gauze, ABD pads and an Kartik bandage. The patient was then extubated without complication and transported to the postanesthesia care unit. At this point in time, the patient will be weightbearing as tolerated to the left lower extremity. We will continue to monitor the drain for the next 3-5 days and then they will likely be removed after 3-5 days. This will be after 130 mL of fluid flushing daily. The patient's vitals will continue to be trended, to ensure that she has downtrending white blood cell, ESR, CRP. If she continues to improve both clinically and with her laboratories, we will likely not require a secondary irrigation and debridement of the left knee. However, if she does not improve, she will likely require a secondary irrigation and debridement of the left knee. She will be medically treated for her pseudogout per the hospitalist's recommendations. We will continue to follow this patient.
[2020-06-26] MEDS ORDERED: VANCOMYCIN HCL 1,000 MG, VIAL MATE ADAPTER 1 EACH in D5W 250 ML IV ONE ×2 (22:00→23:00)
[2020-06-26] MEDS: predniSONE 10 MG TAB PO SCH (22:00)
[2020-06-26 22:10] VITALS: BP 150/76
[2020-06-26] MEDS: COLCHICINE 0.6 MG TABLET PO SCH (22:54)
[2020-06-26 23:10] VITALS: BP 143/71
[2020-06-27] VITALS (7 sets, daily range): BP systolic 105–140; BP diastolic 50–72
[2020-06-27 06:08] LABS: HEMATOCRIT 40.8 % (36.0-47.0); HEMOGLOBIN 13.3 g/dl (12.0-15.5); MEAN CORPUSCULAR HEMOGLOBIN 29.8 pg (27.0-33.0); MEAN CORPUSCULAR HGB CONC 32.6 g/dl (32.0-36.5); MEAN CORPUSCULAR VOLUME 91.5 fl (80.0-96.0); PLATELET COUNT, AUTOMATED 308 10^3/uL (150-450); RED BLOOD COUNT 4.46 10^6/uL (4.00-5.40); WHITE BLOOD COUNT 11.5 10^3/uL (4.0-10.0)
[2020-06-27 06:40] LABS: BLOOD UREA NITROGEN 10 MG/DL (7-18); CALCIUM LEVEL 8.4 MG/DL (8.8-10.2); CARBON DIOXIDE LEVEL 30 MEQ/L (21-32); CHLORIDE LEVEL 104 MEQ/L (98-107); CREATININE FOR GFR 0.69 MG/DL (0.55-1.30); GLOMERULAR FILTRATION RATE > 60.0 (>45); GLUCOSE, FASTING 108 MG/DL (70-100); POTASSIUM SERUM 3.5 MEQ/L (3.5-5.1); SODIUM LEVEL 141 MEQ/L (136-145)
[2020-06-27] MEDS: atenoloL 50 MG TAB PO SCH (09:00)
[2020-06-27] MEDS: PANTOPRAZOLE 40MG TAB (PROTONIX) PO SCH (09:15)
[2020-06-27] MEDS: predniSONE 10 MG TAB PO SCH (09:15)
[2020-06-27] MEDS: VANCOMYCIN HCL 500 MG in D5W MINI-BAG PLUS 100 ML IV SCH ×2 (09:15→21:53)
[2020-06-27] MEDS: SIMVASTATIN 20 MG TAB PO SCH (09:15)
[2020-06-27] MEDS: PARoxetine 20MG TABLET PO SCH (09:16)
[2020-06-27] MEDS: COLCHICINE 0.6 MG TABLET PO SCH (09:16)
[2020-06-27 10:28] LABS: ERYTHROCYTE SEDIMENTATION RATE 23 mm/hr (0-30)
[2020-06-27] MEDS: PERCOCET 5MG/325MG TAB PO PRN ×2 (10:38→21:53)
--- NOTE | 2020-06-27 10:39 | IPNPDOC ---
Text Note Date of Service The patient was seen on 06/27/20. NOTE Subjective: Patient seen and examined at bedside. No acute overnight events reported. Patient still complains of left knee pain. No other medical complaints. Objective: General: NAD, lying comfortably in bed HEENT: NC/AT, EOMI Lungs: CTA B/L Heart: +S1S2, RRR Abd: soft, NT, +BS Ext: no edema, left knee bandages in place - CHARLY drain with serosanguinous fluid A/P: 65-year-old female who presented with a 3 day history of progressively worsening left knee pain and swelling and found to have fluid findings suspicious for septic arthritis, s/p washout by orthopedics #. Septic arthritis of the left knee - follow as per ortho - assistance appreciated - inflammatory markers trending up, leukocytosis improved - cultures and other studies pending - discussed with ortho - assistance appreciated - ID c/s tomorrow - continue vanco for now #. Uric acid crystals -steroids x5 days and colchicine to cover for possible mixed gouty arthiritis #. Polyuria Ordering UA #. Hx of SVT -Continue atenolol #. Systolic murmur #. Depression Continue paroxetine #. GERD -Continue protonix #DVT prophylaxis: Teds/seqs VS,Fishbone, I+O VS, Fishbone, I+O Laboratory Tests 06/26/20 10:37 06/27/20 05:17 Vital Signs Date Time Temp Pulse Resp B/P (MAP) Pulse Ox O2 Delivery O2 Flow Rate FiO2 06/27/20 09:00 65 133/66 06/27/20 06:00 96.6 20 94 06/27/20 01:10 Room Air 06/26/20 21:20 2 I&O- Last 24 Hours up to 6 AM 06/27/20 06:00 Intake Total 1630 ml Output Total 1375 ml Balance 255 ml TIFFANY PLUMMER MD Jun 27, 2020 10:39
[2020-06-27] MEDS: VANCOMYCIN HCL 750 MG, VIAL MATE ADAPTER 1 EACH in D5W 250 ML IV SCH (10:54)
[2020-06-27] MEDS ORDERED: MORPHINE 2 MG/ML 1ML VIAL (J2270) IV ONE (13:00)
[2020-06-27] MEDS ORDERED: COLCHICINE 0.6 MG TABLET PO ONE (18:00)
[2020-06-27] MEDS ORDERED: MORPHINE 2 MG/ML 1ML VIAL (J2270) IV PRN (23:00)
[2020-06-28] MEDS: VANCOMYCIN HCL 750 MG, VIAL MATE ADAPTER 1 EACH in D5W 250 ML IV SCH ×3 (00:02→23:38)
[2020-06-28 06:00] VITALS: BP 164/55
[2020-06-28 06:29] LABS: HEMATOCRIT 38.9 % (36.0-47.0); HEMOGLOBIN 12.4 g/dl (12.0-15.5); MEAN CORPUSCULAR HEMOGLOBIN 29.3 pg (27.0-33.0); MEAN CORPUSCULAR HGB CONC 31.9 g/dl (32.0-36.5); PLATELET COUNT, AUTOMATED 317 10^3/uL (150-450); RED BLOOD COUNT 4.23 10^6/uL (4.00-5.40); WHITE BLOOD COUNT 13.5 10^3/uL (4.0-10.0)
[2020-06-28 07:07] LABS: BLOOD UREA NITROGEN 10 MG/DL (7-18); C REACTIVE PROTEIN QUANTITATIV 5.12 MG/DL (0.00-0.30); CALCIUM LEVEL 8.6 MG/DL (8.8-10.2); CARBON DIOXIDE LEVEL 32 MEQ/L (21-32); CHLORIDE LEVEL 105 MEQ/L (98-107); CREATININE FOR GFR 0.63 MG/DL (0.55-1.30); GLOMERULAR FILTRATION RATE > 60.0 (>45); GLUCOSE, FASTING 100 MG/DL (70-100); POTASSIUM SERUM 3.1 MEQ/L (3.5-5.1); SODIUM LEVEL 145 MEQ/L (136-145)
[2020-06-28] MEDS ORDERED: POTASSIUM CHLORIDE 10 MEQ SR TABLET PO ONE (07:30)
[2020-06-28 07:58] LABS: ERYTHROCYTE SEDIMENTATION RATE 17 mm/hr (0-30)
[2020-06-28 09:48] LABS: ALBUMIN 2.7 GM/DL (3.2-5.2); ALT/SGPT 14 U/L (12-78); BILIRUBIN,DIRECT 0.1 MG/DL (0.0-0.2); BILIRUBIN,TOTAL 0.3 MG/DL (0.2-1.0); MAGNESIUM LEVEL 1.9 MG/DL (1.8-2.4); TOTAL PROTEIN 5.9 GM/DL (6.4-8.2)
[2020-06-28] MEDS: PANTOPRAZOLE 40MG TAB (PROTONIX) PO SCH (10:35)
[2020-06-28] MEDS: SIMVASTATIN 20 MG TAB PO SCH (10:35)
[2020-06-28] MEDS: predniSONE 10 MG TAB PO SCH (10:35)
[2020-06-28] MEDS: PARoxetine 20MG TABLET PO SCH (10:36)
[2020-06-28] MEDS: VANCOMYCIN HCL 500 MG in D5W MINI-BAG PLUS 100 ML IV SCH ×2 (10:36→22:14)
[2020-06-28] MEDS: atenoloL 50 MG TAB PO SCH (10:43)
--- NOTE | 2020-06-28 11:15 | CR ---
CONSULTATION DATE: 06/26/2020 TIME: 2 p.m. CONSULTING SERVICE: Orthopedic Surgery. COSULTING PHYSICIAN: Abrahan Chang MD HISTORY OF PRESENT ILLNESS: This is a 65-year-old female with a left septic knee and pseudogout of the left knee. The patient presented to the [facility] emergency department with a three-day history of worsening left knee pain and swelling. She noticed that three nights prior she woke up at night with left knee pain as well as a left swollen knee. It has gotten worse to the point where she is unable to walk or bear weight on it. The patient does describe a history of tricompartmental osteoarthritis of knee with previous steroid injections in the past years ago with Dr. Miller at [facility]. The patient denied any to her left knee. The patient does endorse intermittent sexual activity giving possible increasing Neisseria gonorrhoeae infection of the left knee. The patient had difficulty with range of motion to the left knee. She was otherwise neurovascularly intact, had a white blood cell count of 13,300, ESR of 18, SGOT of 9.5. The patient's left knee was aspirated by the ER provider with synovial white blood cell count of 76,980 with PMNs of 94.7%. She also had needle shaped intracellular crystals as well as rhomboid shaped crystals indicative of pseudogout with possible regular gout as well. However, the crystals are more suggestive of pseudogout. Orthopedic surgery was consulted for the aforementioned diagnosis which was left knee septic arthritis and pseudogout. She was indicated for an acute irrigation and debridement of the left knee and medical treatment for her pending cultures as well as her pseudogout. PAST MEDICAL HISTORY: 1. History of SVT. 2. History of right upper extremity DVT. 3. History of breast cancer, status post lumpectomy with chemo and radiation. 4. Hyperlipidemia. 5. Inflammatory bowel syndrome. 6. Lumbago. 7. Depression. 8. GERD. 9. Vitamin D deficiency. PAST SURGICAL HISTORY: 1. Lumpectomy for previous breast mass. 2. The patient had complicated hernia surgery at [facility]. MEDICATIONS ALLERGIES: PENICILLIN, SULFA DRUGS. CURRENT MEDICATIONS: Please see hospitalist's note. SOCIAL HISTORY: Nondrinker, nonsmoker, non-drug user. The patient lives at home with her , two cats and one dog. REVIEW OF SYSTEMS: A 14 point review of systems was negative unless otherwise described in the HPI above. PHYSICAL EXAMINATION: The patient was alert to person, time and place. Left lower extremity physical examination: The patient had a moderate to large effusion of the left knee which tracked up to her suprapatellar region. The patient had difficulty with weightbearing and range of motion from 30 degrees to full extension to approximately 100 degrees of flexion. She was otherwise neurovascularly intact to the left lower extremity. She had 2+ dorsalis pedis and posterior tibial arterial pulse. She had 5/5 motor strength of the EHL, FHL, tibialis anterior, gastroc/soleus and peroneal musculature. She had sensation intact to light touch in the deep and superficial peroneal, sural, saphenous and tibial nerve distributions. She had brisk capillary refills of the digits over her left foot. RADIOGRAPHS: Demonstrate tricompartmental osteoarthritis as well as calcification of her medial and lateral meniscus which is indicative for pseudogout. LABORATORY DATA: White blood cell count 13,300, ESR 18, CRP 9.5. Synovial analysis: White blood cell was 76,980. PMNs were 94.7%. Crystals were present, were weakly positively birefringent rhomboid shaped crystals primarily. There were a few needle shaped intracellular crystals which were strongly negatively birefringent, giving her diagnosis of pseudogout with questionable diagnosis of concomitant gout. PLAN: Given the patient's clinical radiographic and laboratory presentations, this patient has left septic knee with concomitant pseudogout diagnosis. She will undergo a left knee irrigation and debridement when she is optimized likely this afternoon with nine liters of normal saline. Cultures will be obtained which include aerobic, anaerobic, AFB and fungal for analysis and culture. She will most likely start vancomycin as an empirical treatment for antibiotics when she is transferred to the floor. We will continue to trend her laboratory values to ensure that she is improving from her left septic knee and she will be treated medically for her gout per the hospitalist's recommendations.
--- NOTE | 2020-06-28 12:44 | IPNPDOC ---
Text Note Date of Service The patient was seen on 06/28/20. NOTE Subjective: Patient seen and examined at bedside. No acute overnight events reported. Patient still complains of left knee pain but improved. No other medical complaints. Objective: General: NAD, lying comfortably in bed HEENT: NC/AT, EOMI Lungs: CTA B/L Heart: +S1S2, RRR Abd: soft, NT, +BS Ext: no edema, left knee bandages in place - CHARLY drain with serosanguinous fluid A/P: 65-year-old female who presented with a 3 day history of progressively worsening left knee pain and swelling and found to have fluid findings suspicious for septic arthritis, s/p washout by orthopedics #. Septic arthritis of the left knee - follow as per ortho - assistance appreciated - inflammatory markers trending down, leukocytosis slightly worsened today - cultures and other studies pending - discussed with ortho - assistance appreciated - ID c/s pending - continue vanco for now #bacteremia - 1 positive BCx - G+ cocci clusters #. Uric acid crystals -steroids x5 days and colchicine to cover for possible mixed gouty arthiritis #. Hx of CPR in OR due to intraoperative bleeding (2017 [facility]) #. Hx of RUE DVT (unknown whether provoked vs unprovoked not on AC) #. Hx of breast cancer s/p L-lumpectomy w/ chemo/radiation (2011) #. HLD #. IBS #. Chronic back pain #. Hx of SVT -Continue atenolol #. Depression Continue paroxetine #. GERD -Continue protonix #DVT prophylaxis: Teds/seqs Dispo: continue IV abx pending cultures/sensitivities and ID c/s; discussed with ortho, follow as per recs VS,Fishbone, I+O VS, Fishbone, I+O Laboratory Tests 06/28/20 05:18 Vital Signs Date Time Temp Pulse Resp B/P (MAP) Pulse Ox O2 Delivery O2 Flow Rate FiO2 06/28/20 10:43 71 137/63 06/28/20 06:00 98.0 20 97 06/28/20 00:18 Room Air 06/26/20 21:20 2 I&O- Last 24 Hours up to 6 AM 06/28/20 06:00 Intake Total 3650 ml Output Total 2760 ml Balance 890 ml TIFFANY PLUMMER MD Jun 28, 2020 12:44
[2020-06-28 14:00] VITALS: BP 129/64
[2020-06-28 14:30] LABS: BODY FLUID RHEUMATOID SCREEN NEGATIVE (NEGATIVE); MUCIN CLOT TEST 4+ (4+)
[2020-06-28] MEDS ORDERED: RAMELTEON 8 MG TAB (ROZEREM) PO SCH (21:00)
[2020-06-28 22:00] VITALS: BP 145/65
[2020-06-29 06:00] VITALS: BP 158/72
[2020-06-29 06:13] LABS: HEMATOCRIT 37.3 % (36.0-47.0); HEMOGLOBIN 12.1 g/dl (12.0-15.5); MEAN CORPUSCULAR HEMOGLOBIN 29.6 pg (27.0-33.0); MEAN CORPUSCULAR HGB CONC 32.4 g/dl (32.0-36.5); MEAN CORPUSCULAR VOLUME 91.2 fl (80.0-96.0); PLATELET COUNT, AUTOMATED 348 10^3/uL (150-450); RED BLOOD COUNT 4.09 10^6/uL (4.00-5.40); WHITE BLOOD COUNT 12.8 10^3/uL (4.0-10.0)
[2020-06-29 06:23] LABS: BLOOD UREA NITROGEN 10 MG/DL (7-18); CALCIUM LEVEL 8.6 MG/DL (8.8-10.2); CARBON DIOXIDE LEVEL 28 MEQ/L (21-32); CHLORIDE LEVEL 108 MEQ/L (98-107); CREATININE FOR GFR 0.58 MG/DL (0.55-1.30); GLOMERULAR FILTRATION RATE > 60.0 (>45); GLUCOSE, FASTING 99 MG/DL (70-100); POTASSIUM SERUM 3.1 MEQ/L (3.5-5.1); SODIUM LEVEL 142 MEQ/L (136-145)
[2020-06-29] MEDS ORDERED: POTASSIUM CHLORIDE 10 MEQ SR TABLET PO ONE (08:00)
[2020-06-29] MEDS ORDERED: COLCHICINE 0.6 MG TABLET PO SCH (09:00)
--- NOTE | 2020-06-29 09:52 | CR ---
CONSULTATION DATE: 06/29/2020 REASON FOR CONSULTATION: I was asked to consult by hospitalist for evaluation of left swollen knee with questionable septic arthritis versus crystal-induced arthritis. HISTORY OF PRESENT ILLNESS: Mrs. Church is a pleasant 65-year-old female who presented to the Emergency Room on June 26 complaining of acute onset of left knee pain and swelling. She had noticed the swelling and the pain for about three days prior to admission when it woke her up in the middle of the night. She had some shaking chills. The patient has a history of osteoarthritis in both knees and has steroid injections but in the past never had a history of gout rule out pseudogout. She does not recall any recent tick bites. The patient had knee aspiration done of the joint effusion which had a white count of 76,000, polymorphonuclear neutrophil predominant, 94% neutrophils and crystals, gout and uric acid as well as pseudogout. The patient was taken to the OR by Dr. Chang on June 26 at 8:00 p.m. and had another culture done which was negative on June 26 from the OR. Blood culture one out of two had small colonies of some gram-positive cocci that has not been identified. The aspiration from the ER has many white cells with moderate yeast-like organisms. When I asked the director from microbiology to review that gram stain, she states she does not see any yeast and it could be possibly the crystals that have been read as yeast-like organisms. There are two operative cultures for aerobic and anaerobic that are negative. AFB fungal smear and culture are negative. OTHER LABS: White count is 13.5, hemoglobin 12.4, hematocrit 38.9, platelets 317. ESR 17. Sodium 145, potassium 3.1, chloride 105, bicarb 32, BUN 10, creatinine 0.63, glucose 100. Lactic acid 0.9. Uric acid 4.1. Calcium 8.6, magnesium 1.9. AST 12, ALT 14, alkaline phosphatase 82, CRP 5.12. Yesterday it was 11. Albumin 2.7. Blood culture one out of two has gram-positive cocci in clusters. It looked like a contaminant, does not like a Staph aureus. Intraoperative aerobic and anaerobic cultures times two are negative. IMAGING: Left knee x-ray showed a large joint effusion. Vascular ultrasound: Left common femoral superficial and popliteal veins are fully compressible with no DVT. There is a Leach's cyst measuring 6.7 x 2.2 cm. PHYSICAL EXAM: General: She is a pleasant, healthy female in no acute distress. Vital signs: Temperature 97.8, pulse 62, respirations 19, blood pressure 129/64, O2 saturation 94% on room air. Heart: Normal S1, S2 with a systolic ejection murmur 2/6. Lungs are clear. No wheezes, rales, or rhonchi. Abdomen is soft, nontender, no hepatosplenomegaly. Extremities: No cyanosis, clubbing. Trace edema on the left side knee. Operative dressing was removed. She has a drain with 50 mL of serosanguineous blood. The patient is able to bend her knee about 80 degrees. The incision line is slightly erythematous. Minimal tenderness. Mild erythema at the incision line but not surrounding the whole knee. PAST MEDICAL HISTORY: History of SVT on Atenolol, right upper extremity DVT, breast cancer status post left lumpectomy with chemoradiation in 2011, hyperlipidemia, irritable bowel syndrome (IBS) with diarrhea, chronic back pain, depression, gastroesophageal reflux disease, ventricular tachycardia D deficiency. PAST SURGICAL HISTORY: Cholecystectomy, partial colectomy, abdominal hernia repair, splenectomy, appendectomy. SOCIAL HISTORY: Quit smoking two years ago, 15 pack year history. She denies alcohol use, marijuana use or any drug use. Lives at home with her . 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 FAMILY HISTORY: Significant for Alzheimer's. REVIEW OF SYSTEMS: Denied any fever, had some sweats and chills the night she had the swollen knee. Denies headache. No chest pain. No cough, no shortness of breath, no nausea or vomiting. She has chronic diarrhea but nothing changed. Knee pain markedly improved. IMPRESSION: This is a pleasant 65-year-old female who is admitted with acute onset of left knee swelling and pain with aspiration consistent with septic arthritis or crystal-induced arthritis. Intraoperative cultures were negative. The aspiration from the ER showed questionable yeast-like organisms but I suspect these are crystals that were misread as I reviewed the gram stain with a different microbiologist who states that she does not see any yeast-like organisms. Blood culture one out of two is positive for gram-positive cocci which look like a contaminant. Currently the patient is on IV Vancomycin, Colchicine and steroids for crystal-induced arthritis, gout, or pseudogout. MEDICATIONS: 1. She is receiving Vancomycin at the dose of 1.25 gm every 12 hours. 2. Colchicine 0.6 mg by mouth daily. 3. Prednisone 30 mg by mouth daily. 4. Tylenol. 5. Pantoprazole 40 mg by mouth daily. 6. Simvastatin 20 mg by mouth daily. 7. Paxil 20 mg by mouth daily. 8. Atenolol 50 mg daily. 9. Percocet one tablet every 6 hours as needed. ALLERGIES: PENICILLIN, SULFA. PLAN: Continue with IV Vancomycin until results of cultures are final tomorrow. If negative, then the patient could go home on Prednisone taper and Colchicine. I anticipate the patient could be discharged home tomorrow with the drains removed by the nurse. I discussed the case with Dr. Chang who agrees with the plan.
[2020-06-29] MEDS: PANTOPRAZOLE 40MG TAB (PROTONIX) PO SCH (10:29)
[2020-06-29] MEDS: PARoxetine 20MG TABLET PO SCH (10:29)
[2020-06-29] MEDS: VANCOMYCIN HCL 500 MG in D5W MINI-BAG PLUS 100 ML IV SCH (10:29)
[2020-06-29 10:30] VITALS: BP 150/74
[2020-06-29] MEDS: predniSONE 10 MG TAB PO SCH (10:30)
[2020-06-29] MEDS: SIMVASTATIN 20 MG TAB PO SCH (10:30)
[2020-06-29] MEDS: atenoloL 50 MG TAB PO SCH (10:30)
[2020-06-29] MEDS ORDERED: PRED10TA2 PO (11:00)
[2020-06-29] MEDS ORDERED: COLC0.6T47 PO (11:04)
[2020-06-29] MEDS: PERCOCET 5MG/325MG TAB PO PRN (12:16)
[2020-06-29] MEDS: VANCOMYCIN HCL 750 MG, VIAL MATE ADAPTER 1 EACH in D5W 250 ML IV SCH (12:17)
[2020-06-29 17:07] LABS: Lyme Disease IgG/IgM Antibodie <0.91 ISR (0.00-0.90); Lyme Disease IgM Ab Quantitati <0.80 index (0.00-0.79)
--- NOTE | 2020-06-30 12:07 | ECHO ---
DATE OF PROCEDURE: 06/28/2020 Age: 65 Gender: Female Height: 72 inches Weight: 211 pounds Body Surface Area: 2.18 m2 PATIENT LOCATION: [facility] Room 4201 REFERRING PHYSICIAN: Spike Vasquez MD. INDICATION: Sepsis. MEASUREMENTS: 2D Measurements: RV 3.7 cm. LV 5.0 cm Septum 1.2 cm Posterior wall 1.2 cm Aortic Root 3.2 cm LA 4.0 cm LVEF 65% Doppler Measurements: AV 1.71 m/s LVOT 1.38 m/s MV-E 70, A 36, EA ratio 2 Early mitral deceleration time 214 msec E prime medial 9.9, A prime medial 7.1, E prime lateral 11.9 PV 0.9 m/s Pulmonary artery acceleration time 140 msec PASP - 20 mmHg IVC 1.5 cm COMMENTS: Sinus bradycardia without intraventricular conduction disturbance. M-mode and 2-dimensional echocardiography was performed with pulse, continuous wave, color flow, and tissue Doppler studies. Borderline concentric left ventricular hypertrophy with normal wall motion. Mildly dilated left atrium with currently normal Doppler assessment of LV diastolic function and estimated mean left atrial pressure. Normal right heart chamber sizes and motion and estimated pulmonary arterial pressure. Normal IVC size and collapse against an elevated central venous pressure. Normal aortic dimensions. Normal appearing aortic valve with three equal size cusps and adequate cusp separation. Very mild eccentric aortic insufficiency. Normal appearing mitral valvular apparatus and leaflet excursion with no posterior systolic buckling and only trace insufficiency. Normal appearing tricuspid valve with trace insufficiency. No apparent intracardiac mass or pericardial effusion. The patient has very mild aortic insufficiency without clearcut explanation. If endocarditis is seriously suspect, would recommend a complete blood count, sedimentation rate, and two sets of blood cultures 12 hours apart. Again, if endocarditis is suspect, it may be prudent to consider obtaining a transesophageal echocardiogram to more precisely define her aortic valve. GE
--- NOTE | 2020-06-30 15:25 | DS.PDOC ---
Discharge Summary General Date of Admission Jun 26, 2020 at 14:26 Date of Discharge 06/29/20 Discharge Summary PROCEDURES PERFORMED DURING STAY: Left knee irrigation and debridement on 06/26/20 DISCHARGE DIAGNOSES: Crystal mediated acute arthritis of the left knee Gout and Pseudogout Septic arthritis Ruled out SECONDARY DIAGNOSIS: Hx of CPR in OR due to intraoperative bleeding (2017 [facility]) Hx of SVT (last episode 10 years ago) Hx of RUE DVT (unknown whether provoked vs unprovoked not on AC) Hx of breast cancer s/p L-lumpectomy w/ chemo/radiation (2011) HLD IBS Chronic back pain Depression GERD Vitamin D deficiency COMPLICATIONS/CHIEF COMPLAINT: Septic Arthritis Of Knee,Left. HOSPITAL COURSE: 65-year-old female who presented to the ED with a 3 day history of progressively worsening left knee pain and swelling and found to have fluid findings suspicious for septic arthritis, along with uric acid and calcium pyro phosphate crystals. S/p irrigation and debridement of the left knee by orthopedics. Cultures from the knee before antibiotics are negative for any growth. Septic arthritis of the left knee ruled out cultures negative AFB and fungal are pending Antibioitcs dced. Follow up with Dr Chang Bacteremia 05/25 positive BCx - G+ cocci clusters pending likely contaminant Acute Gout and Pseudogout steroid taper and colchicine Hx of CPR in OR due to intraoperative bleeding (2017 [facility]) Hx of RUE DVT (unknown whether provoked vs unprovoked not on AC) Hx of breast cancer s/p L-lumpectomy w/ chemo/radiation (2011) HLD IBS Chronic back pain Hx of SVT Continue atenolol Depression Continue paroxetine GERD Continue protonix DISCHARGE MEDICATIONS: Please see below. ALLERGIES: Please see below. PHYSICAL EXAMINATION ON DISCHARGE: VITAL SIGNS: Please see below. General: NAD, lying comfortably in bed HEENT: NC/AT, EOMI Lungs: CTA B/L Heart: +S1S2, RRR, No rub or murmur or gallop Abd: soft, NT, +BS Ext: no edema, CHARLY drain with serosanguinous fluid LABORATORY DATA: Please see below. IMAGING: Knee Xray: No fracture or dislocation. There is mild medial joint space narrowing and subchondral sclerosis. There is mild diffuse spurring, with a more moderate d egree of spurring of the superior pole of the patella. There is mild diffuse chondrocalcinosis. There is a large joint effusion. IMPRESSION: No acute fracture. Arthritic changes. Large joint effusion. ACTIVITY: [As tolerated]. DIET: As tolerated DISPOSITION: 01 Home, Self-Care. DISCHARGE INSTRUCTIONS: Dr Chang in 1 week PMD in 1 to 2 weeks DISCHARGE CONDITION: [Stable]. TIME SPENT ON DISCHARGE: 35 minutes. Vital Signs/I&Os Vital Signs Date Time Temp Pulse Resp B/P (MAP) Pulse Ox O2 Delivery O2 Flow Rate FiO2 06/29/20 12:46 18 06/29/20 10:30 70 150/74 06/29/20 06:00 97.9 97 Room Air 06/26/20 21:20 2 I&O- Last 24 Hours up to 6 AM 06/30/20 06:00 Intake Total 1465 ml Output Total 425 ml Balance 1040 ml Microbiology Microbiology 06/28/20 Blood Culture - Preliminary, Resulted No Growth after 48 hours. All Specime... 06/28/20 Blood Culture - Preliminary, Resulted No Growth after 48 hours. All Specime... 06/26/20 Acid Fast Stain, Received Pending 06/26/20 Mycobacterial Culture, Received Pending 06/26/20 Fungal Smear, Received Pending 06/26/20 Fungal Culture, Received Pending 06/26/20 Anaerobic Culture - Final, Complete 06/26/20 Gram Stain - Final, Complete 06/26/20 Abscess Culture - Final, Complete 06/26/20 Acid Fast Stain, Received Pending 06/26/20 Mycobacterial Culture, Received Pending 06/26/20 Fungal Smear, Received Pending 06/26/20 Fungal Culture, Received Pending 06/26/20 Anaerobic Culture - Final, Complete 06/26/20 Gram Stain - Final, Complete 06/26/20 Abscess Culture - Final, Complete 06/26/20 Blood Culture - Preliminary, Resulted No Growth after 72 hours. All specime... 06/26/20 Blood Culture - Preliminary, Resulted 06/26/20 Gram Stain - Final, Complete 06/26/20 Body Fluid Culture - Final, Complete Discharge Medications Scheduled Aspirin (Aspirin EC) 81 Mg Tablet.dr 81 MG PO DAILY, (Reported) Atenolol (Atenolol) 25 Mg Tab, 50 MG PO DAILY, (Reported) Colchicine (Colchicine) 0.6 Mg Tablet, 0.6 MG PO DAILY for gout pain Ergocalciferol (Vitamin D2) (Vitamin D2) 50,000 Units Cap, 50,000 UNITS PO 1XWK, (Reported) THURSDAYS Lansoprazole (Lansoprazole) 30 Mg Cap, 30 MG PO DAILY, (Reported) Paroxetine HCl (Paroxetine HCl) 20 Mg Tab, 20 MG PO DAILY, (Reported) Prednisone (Prednisone) 10 Mg Tablet, 10 MG PO TAPER 3 tabs daily x 1 day then 2 tabs daily x 3 days, then 1 tab daily x 3 days and stop Simvastatin (Simvastatin) 20 Mg Tab, 20 MG PO DAILY, (Reported) Allergies Coded Allergies: Penicillins (Verified Allergy, Intermediate, 09/07/18) Sulfa (Sulfonamide Antibiotics) (Verified Allergy, Intermediate, 09/07/18) JUSTIN OLMEDO MD Jun 30, 2020 13:00
== END 2020-06-29 16:13 | disposition home or self-care (01) | DRG 501 ==
LOC: M ED 10:01 → M ED INP 14:26 → M MSPAV 16:15
PROVIDERS: ADMIT Internal Medicine Nephrology; ATTEND Internal Medicine Nephrology
PROC: 0YBG0ZZ Excision of Left Knee Region, Open Approach (ICD-10-PCS; principal; 2020-06-26 18:45)
DX: M11.861 Other specified crystal arthropathies, right knee (principal); I47.1 Supraventricular tachycardia; M1A.9XX0 Chronic gout, unspecified, without tophus (tophi); M10.9 Gout, unspecified; Z85.3 Personal history of malignant neoplasm of breast; E55.9 Vitamin D deficiency, unspecified; K21.9 Gastro-esophageal reflux disease without esophagitis; F32.9 Major depressive disorder, single episode, unspecified; K58.9 Irritable bowel syndrome, unspecified; Z79.82 Long term (current) use of aspirin; Z79.899 Other long term (current) drug therapy; Z88.0 Allergy status to penicillin; Z88.2 Allergy status to sulfonamides; Z86.718 Personal history of other venous thrombosis and embolism

== ENCOUNTER → 2020-07-06 | Outpatient (REF) | payer MEDICARE ==
[~2020-07-06] MED LIST changes: +ASPI81TA26 PO; +COLC0.6T47 PO; +PRED10TA2 PO; +VITA50005 PO
== END ==
LOC: M LAB REF 11:11
PROVIDERS: ATTEND Physician Assistant Medical
DX: M10.462 Other secondary gout, left knee (principal)

== ENCOUNTER → 2020-07-08 | Outpatient (CLI) | payer MEDICARE ==
[2020-07-08 14:25] LABS: BASO # 0.1 10^3/uL (0.0-0.2); BASO % 0.6 % (0.0-1.0); EOS # 0.4 10^3/uL (0.0-0.5); HEMATOCRIT 44.2 % (36.0-47.0); HEMOGLOBIN 13.9 g/dl (12.0-15.5); LYMPH # 2.7 10^3/uL (1.5-5.0); LYMPH % 26.8 % (24.0-44.0); MEAN CORPUSCULAR HEMOGLOBIN 29.2 pg (27.0-33.0); MEAN CORPUSCULAR HGB CONC 31.4 g/dl (32.0-36.5); MEAN CORPUSCULAR VOLUME 92.9 fl (80.0-96.0); MONO # 1.1 10^3/uL (0.0-0.8); NEUTROPHILS # 5.8 10^3/uL (1.5-8.5); NEUTROPHILS % 56.8 % (36.0-66.0); PLATELET COUNT, AUTOMATED 433 10^3/uL (150-450); RED BLOOD COUNT 4.76 10^6/uL (4.00-5.40); WHITE BLOOD COUNT 10.1 10^3/uL (4.0-10.0)
[2020-07-08 14:57] LABS: ERYTHROCYTE SEDIMENTATION RATE 64 mm/hr (0-30)
== END ==
LOC: M WUC 10:37
PROVIDERS: ATTEND Physician Assistant
DX: Z47.89 Encounter for other orthopedic aftercare (principal); Z79.899 Other long term (current) drug therapy

== ENCOUNTER → 2021-06-15 | Outpatient (CLI) | payer MEDICARE ==
[~2021-06-15] MED LIST changes: +ERGO500029 PO; -VITA50005 PO
== END ==
LOC: M WUC 11:47
PROVIDERS: ATTEND Nurse Practitioner Adult Health
DX: M46.96 Unspecified inflammatory spondylopathy, lumbar region (principal); M25.512 Pain in left shoulder

== ENCOUNTER 2021-07-30 01:19 | Inpatient (IN) | payer MEDICARE ==
[~2021-07-30] VITALS: Ht 180.3 cm; Wt 93.7 kg
[2021-07-30 01:52] LABS: BASO # 0.1 10^3/uL (0.0-0.2); BASO % 0.2 % (0.0-1.0); EOS % 0.2 % (0.0-3.0); HEMATOCRIT 47.5 % (36.0-47.0); LYMPH # 1.7 10^3/uL (1.5-5.0); LYMPH % 8.6 % (24.0-44.0); MEAN CORPUSCULAR HEMOGLOBIN 30.4 pg (27.0-33.0); MEAN CORPUSCULAR HGB CONC 33.7 g/dl (32.0-36.5); MEAN CORPUSCULAR VOLUME 90.3 fl (80.0-96.0); NEUTROPHILS # 17.1 10^3/uL (1.5-8.5); NEUTROPHILS % 85.5 % (36.0-66.0); PLATELET COUNT, AUTOMATED 342 10^3/uL (150-450); RED BLOOD COUNT 5.26 10^6/uL (4.00-5.40); WHITE BLOOD COUNT 20.1 10^3/uL (4.0-10.0)
[2021-07-30] MEDS ORDERED: MORPHINE 4 MG/ML 1ML VIAL/SYRINGE (J2270) IV PRN ×3 (02:20→06:05)
[2021-07-30] MEDS ORDERED: PROMETHAZINE INJ 25 MG/ML VIAL (J2550) IV ONE (02:20)
[2021-07-30 02:26] LABS: BLOOD UREA NITROGEN 18 MG/DL (7-18); CARBON DIOXIDE LEVEL 22 MEQ/L (21-32); CHLORIDE LEVEL 107 MEQ/L (98-107); CK-MB VALUE MASS 1.8 NG/ML (<3.6); GLOMERULAR FILTRATION RATE > 60.0 (>45); GLUCOSE, FASTING 140 MG/DL (70-100); MB/CK RELATIVE INDEX 1.91 (< OR =4); POTASSIUM SERUM 3.9 MEQ/L (3.5-5.1); SODIUM LEVEL 139 MEQ/L (136-145)
[2021-07-30 02:27] LABS: ALBUMIN 3.7 GM/DL (3.2-5.2); ALT/SGPT 22 U/L (12-78); BILIRUBIN,DIRECT 0.1 MG/DL (0.0-0.2); BILIRUBIN,TOTAL 0.5 MG/DL (0.2-1.0); CALCIUM LEVEL 9.1 MG/DL (8.8-10.2); LIPASE 112 U/L (73-393)
[2021-07-30] MEDS ORDERED: ISOVUE-370 76% 100ML VIAL As Ordered ONE (02:44)
[2021-07-30] MEDS ORDERED: cefTRIAXone SOD 2 GM in D5W MINI-BAG PLUS 50 ML IV ONE (03:25)
[2021-07-30] MEDS ORDERED: NS 1,000 ML IV ONE (04:05)
[2021-07-30 04:30] LABS: RSV AMPLIFICATION NEGATIVE (NEGATIVE)
[2021-07-30] MEDS ORDERED: OMEP40CA5 PO (04:54)
[2021-07-30] MEDS ORDERED: HOME MED LIST COMPLETE! XX SCH (04:55)
[2021-07-30] MEDS ORDERED: ONDANSETRON 4MG/2ML VIAL IV ONE (05:05)
[2021-07-30] MEDS ORDERED: METOCLOPRAMIDE INJ 10MG/2ML VIAL (J2765 PER 1) IV PRN (06:05)
[2021-07-30] MEDS ORDERED: ONDANSETRON 4MG/2ML VIAL IV PRN (06:05)
[2021-07-30] MEDS: LR 1,000 ML IV SCH ×2 (06:05→14:05)
[2021-07-30] MEDS: KETOROLAC 30 MG/ML 1ML VIAL IV PRN (06:23)
[2021-07-30 07:50] LABS: BASO % 0.2 % (0.0-1.0); EOS % 0.3 % (0.0-3.0); HEMATOCRIT 44.8 % (36.0-47.0); HEMOGLOBIN 14.9 g/dl (12.0-15.5); LYMPH # 1.6 10^3/uL (1.5-5.0); LYMPH % 10.7 % (24.0-44.0); MEAN CORPUSCULAR HEMOGLOBIN 30.5 pg (27.0-33.0); MEAN CORPUSCULAR HGB CONC 33.3 g/dl (32.0-36.5); MEAN CORPUSCULAR VOLUME 91.6 fl (80.0-96.0); MONO # 1.2 10^3/uL (0.0-0.8); MONO % 7.9 % (2.0-8.0); NEUTROPHILS # 12.1 10^3/uL (1.5-8.5); NEUTROPHILS % 80.6 % (36.0-66.0); PLATELET COUNT, AUTOMATED 312 10^3/uL (150-450); RED BLOOD COUNT 4.89 10^6/uL (4.00-5.40); WHITE BLOOD COUNT 15.1 10^3/uL (4.0-10.0)
[2021-07-30] MEDS: PANTOPRAZOLE 40MG VIAL (C9113 PER 1) IV SCH (08:02)
[2021-07-30 08:21] LABS: BLOOD UREA NITROGEN 17 MG/DL (7-18); CALCIUM LEVEL 8.2 MG/DL (8.8-10.2); CARBON DIOXIDE LEVEL 28 MEQ/L (21-32); CHLORIDE LEVEL 109 MEQ/L (98-107); CREATININE FOR GFR 0.77 MG/DL (0.55-1.30); GLOMERULAR FILTRATION RATE > 60.0 (>45); GLUCOSE, FASTING 113 MG/DL (70-100); POTASSIUM SERUM 3.8 MEQ/L (3.5-5.1); SODIUM LEVEL 143 MEQ/L (136-145)
[2021-07-30 08:25] LABS: CK-MB VALUE MASS 2.4 NG/ML (<3.6); MB/CK RELATIVE INDEX 5.11 (< OR =4)
[2021-07-30 16:30] VITALS: BP 118/64
[2021-07-30 22:00] VITALS: BP 141/72
[2021-07-31] VITALS (7 sets, daily range): BP systolic 111–172; BP diastolic 53–76
[2021-07-31] MEDS: KETOROLAC 30 MG/ML 1ML VIAL IV PRN ×2 (00:43→09:46)
[2021-07-31] MEDS: LR 1,000 ML IV SCH ×4 (00:44→21:44)
[2021-07-31 07:36] LABS: BASO % 0.2 % (0.0-1.0); EOS # 0.3 10^3/uL (0.0-0.5); EOS % 3.3 % (0.0-3.0); HEMATOCRIT 41.6 % (36.0-47.0); HEMOGLOBIN 13.7 g/dl (12.0-15.5); LYMPH % 29.7 % (24.0-44.0); MEAN CORPUSCULAR HEMOGLOBIN 30.6 pg (27.0-33.0); MEAN CORPUSCULAR HGB CONC 32.9 g/dl (32.0-36.5); MEAN CORPUSCULAR VOLUME 92.9 fl (80.0-96.0); MONO % 9.5 % (2.0-8.0); NEUTROPHILS # 5.7 10^3/uL (1.5-8.5); NEUTROPHILS % 56.8 % (36.0-66.0); PLATELET COUNT, AUTOMATED 291 10^3/uL (150-450); RED BLOOD COUNT 4.48 10^6/uL (4.00-5.40)
[2021-07-31 07:48] LABS: BLOOD UREA NITROGEN 16 MG/DL (7-18); CARBON DIOXIDE LEVEL 30 MEQ/L (21-32); CHLORIDE LEVEL 110 MEQ/L (98-107); CREATININE FOR GFR 0.69 MG/DL (0.55-1.30); GLOMERULAR FILTRATION RATE > 60.0 (>45); GLUCOSE, FASTING 79 MG/DL (70-100); POTASSIUM SERUM 3.5 MEQ/L (3.5-5.1); SODIUM LEVEL 144 MEQ/L (136-145)
[2021-07-31] MEDS: PANTOPRAZOLE 40MG VIAL (C9113 PER 1) IV SCH (09:19)
[2021-07-31] MEDS ORDERED: atenoloL 50 MG TAB PO SCH (11:35)
[2021-08-01] MEDS ORDERED: PARoxetine 20MG TABLET PO SCH (09:00)
== END 2021-07-31 22:44 | disposition home or self-care (01) | DRG 390 ==
LOC: EDBD 01:19 → M ED 01:19 → EDSEX 01:19 → M ED INP 06:02 → ENRESERV 14:52 → M MS5PR 16:15
PROVIDERS: ADMIT Surgery; ATTEND Surgery
DX: K56.609 Unspecified intestinal obstruction, unspecified as to partial versus complete obstruction (principal); Z85.3 Personal history of malignant neoplasm of breast; E78.5 Hyperlipidemia, unspecified; F32.A Depression, unspecified; Z90.81 Acquired absence of spleen; Z79.82 Long term (current) use of aspirin; Z79.899 Other long term (current) drug therapy; Z88.0 Allergy status to penicillin; Z88.2 Allergy status to sulfonamides; F17.210 Nicotine dependence, cigarettes, uncomplicated; K57.30 Diverticulosis of large intestine without perforation or abscess without bleeding; K43.9 Ventral hernia without obstruction or gangrene

== ENCOUNTER → 2021-08-08 | Outpatient (CLI) | payer MEDICARE ==
[~2021-08-08] MED LIST changes: +OMEP40CA5 PO
== END ==
LOC: M WHC 10:56
PROVIDERS: ATTEND Nurse Practitioner Adult Health
DX: Z12.31 Encounter for screening mammogram for malignant neoplasm of breast (principal); Z85.3 Personal history of malignant neoplasm of breast; Z92.21 Personal history of antineoplastic chemotherapy

== ENCOUNTER → 2022-08-09 | Outpatient (CLI) | payer MEDICARE | LOC: M WHC 09:47 | PROVIDERS: ATTEND Nurse Practitioner Adult Health | DX: Z12.31 Encounter for screening mammogram for malignant neoplasm of breast (principal) ==

== ENCOUNTER 2022-09-11 12:20 | Day surgery (SDC) | payer MEDICARE ==
[~2022-09-11] VITALS: Ht 182.9 cm; Wt 90.0 kg
[2022-09-11] MEDS ORDERED: propofoL 200 MG/20 ML VIAL As Ordered ONE (14:24)
[2022-09-11] MEDS ORDERED: LIDOCAINE 2% 100MG/5ML SDV (FOR ANES.) As Ordered ONE (14:24)
[2022-09-11 14:54] VITALS: BP 125/63
== END 2022-09-11 14:56 | disposition home or self-care (01) ==
LOC: M OPP 12:20
PROVIDERS: ATTEND Internal Medicine Gastroenterology
DX: D12.3 Benign neoplasm of transverse colon (principal); K64.1 Second degree hemorrhoids; K62.5 Hemorrhage of anus and rectum; K57.30 Diverticulosis of large intestine without perforation or abscess without bleeding

== ENCOUNTER 2023-01-25 12:05 | Emergency (ER) | payer MEDICARE ==
[~2023-01-25] VITALS: Ht 182.9 cm; Wt 90.9 kg
[2023-01-25 14:58] LABS: BASO # 0.1 10^3/uL (0.0-0.2); BASO % 0.5 % (0.0-1.0); EOS # 0.2 10^3/uL (0.0-0.5); EOS % 1.6 % (0.0-3.0); HEMATOCRIT 46.6 % (36.0-47.0); HEMOGLOBIN 15.3 g/dl (12.0-15.5); LYMPH # 2.7 10^3/uL (1.5-5.0); LYMPH % 23.1 % (24.0-44.0); MEAN CORPUSCULAR HGB CONC 32.8 g/dl (32.0-36.5); MEAN CORPUSCULAR VOLUME 94.5 fl (80.0-96.0); MONO # 1.2 10^3/uL (0.0-0.8); NEUTROPHILS # 7.6 10^3/uL (1.5-8.5); NEUTROPHILS % 64.5 % (36.0-66.0); PLATELET COUNT, AUTOMATED 313 10^3/uL (150-450); RED BLOOD COUNT 4.93 10^6/uL (4.00-5.40); WHITE BLOOD COUNT 11.8 10^3/uL (4.0-10.0)
[2023-01-25 15:17] LABS: ERYTHROCYTE SEDIMENTATION RATE 40 mm/hr (0-30)
[2023-01-25 15:27] LABS: BLOOD UREA NITROGEN 11 MG/DL (9-23); CARBON DIOXIDE LEVEL 29 MMOL/L (20-31); CHLORIDE LEVEL 106 MMOL/L (98-107); CREATININE FOR GFR 0.68 MG/DL (0.55-1.30); GLOMERULAR FILTRATION RATE > 60.0 (>45); GLUCOSE, FASTING 95 MG/DL (74-106); POTASSIUM SERUM 4.2 MMOL/L (3.5-5.1); SODIUM LEVEL 141 MMOL/L (136-145)
[2023-01-25] MEDS ORDERED: NS 1,000 ML IV ONE (16:25)
[2023-01-25] MEDS ORDERED: ISOVUE-370 76% 100ML VIAL As Ordered ONE (16:49)
[2023-01-25] MEDS ORDERED: LIDOCAINE 1% MDV 20ML VIAL SC ONE (18:15)
[2023-01-25 18:50] VITALS: BP 175/80; TEMP 98.6; O2SAT 97
[2023-01-25 19:19] LABS: SOURCE, BODY FLUID LFT KNEE; SYNOVIAL FLUID COLOR YELLOW (COLORLESS)
[2023-01-25 19:23] LABS: CRYSTALS, BODY FLUID CA PYROPHOSPHATE (NONE SEEN); SOURCE, BODY FLUID CRYSTALS LFT KNEE
[2023-01-25 19:37] LABS: SOURCE, BODY FLUID GLUCOSE LFT KNEE
[2023-01-25 20:05] LABS: SOURCE, BODY FLUID URIC ACID LFT KNEE
[2023-01-25] MEDS ORDERED: NAPR-837 PO (20:20)
== END 2023-01-25 20:37 | disposition home or self-care (01) ==
LOC: M ED 12:05
DX: M11.262 Other chondrocalcinosis, left knee (principal); M25.462 Effusion, left knee; C50.919 Malignant neoplasm of unspecified site of unspecified female breast; F17.200 Nicotine dependence, unspecified, uncomplicated; Z88.2 Allergy status to sulfonamides; Z79.82 Long term (current) use of aspirin; Z79.83 Long term (current) use of bisphosphonates; Z79.899 Other long term (current) drug therapy
CPT/HCPCS: 20610; 36415; 73701; 80048; 82945; 83605; 84550; 84560; 85025; 85652; 86140; 87070; 87077; 87186; 87205; 89050; 89060; 93971; 96361; 96372; 99284; Q9967

== ENCOUNTER → 2023-07-02 | Outpatient (CLI) | payer MEDICARE ==
[~2023-07-02] MED LIST changes: +NAPR-837 PO
== END ==
LOC: M SOG 08:05
PROVIDERS: ATTEND Physician Assistant
DX: M25.561 Pain in right knee (principal); M25.562 Pain in left knee; M17.0 Bilateral primary osteoarthritis of knee; M11.261 Other chondrocalcinosis, right knee; M11.262 Other chondrocalcinosis, left knee

== ENCOUNTER → 2023-09-13 | Outpatient (CLI) | payer MEDICARE | LOC: M WHC 13:29 | PROVIDERS: ATTEND Nurse Practitioner Adult Health | DX: Z12.31 Encounter for screening mammogram for malignant neoplasm of breast (principal); Z85.3 Personal history of malignant neoplasm of breast; Z92.3 Personal history of irradiation ==

== ENCOUNTER → 2024-08-04 | Outpatient (CLI) | payer MEDICARE | LOC: M WUC 11:13 | PROVIDERS: ATTEND Registered Nurse | DX: M26.601 Right temporomandibular joint disorder, unspecified (principal) ==

== ENCOUNTER → 2024-09-24 | Outpatient (CLI) | payer MEDICARE | LOC: M WHC 10:58 | PROVIDERS: ATTEND Nurse Practitioner Adult Health | DX: Z12.31 Encounter for screening mammogram for malignant neoplasm of breast (principal); R92.313 Mammographic fatty tissue density, bilateral breasts ==

== ENCOUNTER → 2024-09-24 | Outpatient (CLI) | payer MEDICARE | LOC: M SOG 08:09 | PROVIDERS: ATTEND Physician Assistant | DX: M25.562 Pain in left knee (principal); M25.561 Pain in right knee; M17.0 Bilateral primary osteoarthritis of knee ==